=== PATIENT | male | born 1940 | race Caucasian/White ===

== ENCOUNTER → 2020-12-02 00:18 | Outpatient (CLI) | payer OTHER, SELFPAY ==
[2020-12-02 21:18] LABS: SARS-CoV-2 RNA PCR Negative
== END ==
PROVIDERS: PCP Internal Medicine; Visit Provider Internal Medicine Gastroenterology
DX: Z01.812 Encounter for preprocedural laboratory examination (principal); Z20.822 Contact with and (suspected) exposure to COVID-19
CPT/HCPCS: C9803; U0003; U0005

== ENCOUNTER 2020-12-05 00:27 | Day surgery (SDC) | payer OTHER, SELFPAY ==
[2020-11-24 14:20] VITALS: BMI 36.8
[2020-12-05 10:42] VITALS: BP 154/71; PULSE 88; RESP 20; TEMP 36.2; O2SAT 94
[2020-12-05] MEDS: LACTATED RINGERS 1,000 ML 150 ML IV CONT (10:53)
--- NOTE | 2020-12-05 11:48 | WPDANESEPP ---
Anes - Eval Pre Procedure Procedure: Operation Date: 12/05/20 12:00 Proposed Procedures p Screening Colonoscopy - Eris Bird MD Date/Time: 12/05/20 11:48 Surgeon: nyla Preop Diagnosis: colonoscopy Pre Op Diagnosis: Neoplasm Screening Patient Data Age: 79 Gender: M Height: 1.83 m Weight: 125.2 kg Last Vital Signs Temp 36.2 C L 12/05/20 10:42 Pulse 88 12/05/20 10:42 Resp 20 12/05/20 10:42 BP 154/71 H 12/05/20 10:42 Pulse Ox 94 12/05/20 10:42 Allergies Allergy/AdvReac Type Severity Reaction Status Date / Time No Known Allergies Allergy Unknown Verified 12/05/20 10:41 Home Medications Medication Instructions Recorded Confirmed Type aspirin 81 mg tablet,delayed 81 mg PO DAILY 09/19/19 12/05/20 History release cholecalciferol (vitamin D3) 25 1,000 unit PO DAILY 09/19/19 12/05/20 History mcg (1,000 unit) capsule loratadine 10 mg tablet 10 mg PO DAILY 09/19/19 12/05/20 History multivitamin 1 tablet PO DAILY 09/19/19 12/05/20 History fluticasone furoate 100 1 inhalation INHALATION Q24H 90 03/28/20 12/05/20 Rx mcg-vilanterol 25 mcg/dose Days #180 each inhalation powder montelukast 10 mg tablet 10 mg PO DAILY 90 Days #90 tablet 03/28/20 12/05/20 Rx albuterol sulfate 90 mcg/actuation 1 inhalation INHALATION Q4H PRN 05/09/20 12/05/20 Rx aerosol inhaler #18 gm losartan 100 mg tablet See Rx Instructions .ROUTE 07/29/20 12/05/20 Rx .COMPLEX #90 tablet metoprolol succinate 50 mg See Rx Instructions .ROUTE 07/29/20 12/05/20 Rx tablet,extended release 24 hr .COMPLEX #90 tablet potassium chloride 20 mEq See Rx Instructions .ROUTE 07/29/20 12/05/20 Rx tablet,extended release(part/cryst) .COMPLEX #90 tablet furosemide 40 mg tablet See Rx Instructions .ROUTE 10/15/20 12/05/20 Rx .COMPLEX #180 tablet sodium,potassium,mag sulfates 17.5 See Rx Instructions PO .COMPLEX 11/24/20 12/05/20 Rx gram-3.13 gram-1.6 gram oral soln #354 ml Patient hx anesthesia problems: none Family hx anesthesia problems: none PMFSH Past Medical History Medical History Allergic rhinitis, unspecified (10/02/15) Bleeding nose Chronic diastolic (congestive) heart failure COPD with exacerbation Essential (primary) hypertension History of tobacco use quit 1984 Hypersomnia Mild intermittent asthma without complication Postnasal drip Rhinitis Simple chronic bronchitis Family History Family History Father Acute myocardial infarction, Onset Age: 59 Mother Family history of chronic obstructive pulmonary disease Social History Social History Smoking packs per day: 1 Smoking cigarettes per day: 20.0 Years smoked: 20 Smoking pack-years: 20.00 Smoking status: Former smoker Tobacco type: cigarettes Alcohol intake: current Alcohol use details: rarely Living arrangements: alone Gender identity (if verbalized by the patient): Male Spiritual care concerns: No Exam Day of Procedure 12/05/20 11:48 Patient weight: morbidly obese Heart: regular rate and rhythm Lungs: normal air movement Airway: Mallampati scale class III Neurological: alert and oriented
--- NOTE | 2020-12-05 11:51 | P.PNAN_ITS ---
Anes - Eval Final PreProcedure Day of Procedure 12/05/20 11:51 Patient weight: obese Heart: regular rate and rhythm Lungs: clear to auscultation Airway: Mallampati scale class II Neurological: alert and oriented Last oral intake: >/= 8 hours ASA classification: III Emergent: no Anesthetic plan: proceed Anesthesia type and monitoring: general GIVS and standard monitoring Informed Consent: The patient's anesthetic plan and its attendant risks and b enefits were discussed with the patient/family/POA. Questions were solicited and answers provided to the satisfaction of the patient/family/POA.
--- NOTE | 2020-12-05 11:51 | PM.HPGS ---
History of Present Illness History of Present Illness Consent: Risks, benefits, and alternatives have been discussed and questions answered. Patient agrees to proceed with procedure. Chief complaint: Neoplasm Screening Narrative: Michael Wang is a 79 year old male with colon polyps, last colonoscopy about 5 years ago. Review of Systems Constitutional: Constitutional: Denies headache(s) and Denies weakness Eyes: Eyes: Denies blurry vision ENT: Reports Normal hearing present, Denies headache(s) and Denies neck pain Cardiovascular: Cardiovascular: Denies chest pain and Denies dyspnea Respiratory: Respiratory: Denies dyspnea Gastrointestinal: Gastrointestinal: Reports no additional gastrointestinal complaints Genitourinary: Genitourinary: Denies dysuria Musculoskeletal: Musculoskeletal: Denies neck pain Integumentary/Breasts: Skin/Breast: Denies dry skin Neurologic: Reports Normal hearing present, Denies headache(s) and Denies weakness Psychiatric: Psychiatric: Denies anxiety Endocrine: Endocrine: Denies change in body appearance Hematologic/Lymphatic: Hematologic/Lymphatic: Denies easy bleeding Allergic/Immunologic: Allergic/Immunologic: Denies urticaria PMFSH Past Medical History Medical History Allergic rhinitis, unspecified (10/02/15) Bleeding nose Chronic diastolic (congestive) heart failure COPD with exacerbation Essential (primary) hypertension History of tobacco use quit 1984 Hypersomnia Mild intermittent asthma without complication Postnasal drip Rhinitis Simple chronic bronchitis Family History Family History Father Acute myocardial infarction, Onset Age: 59 Mother Family history of chronic obstructive pulmonary disease Social History Social History Smoking packs per day: 1 Smoking cigarettes per day: 20.0 Years smoked: 20 Smoking pack-years: 20.00 Smoking status: Former smoker Tobacco type: cigarettes Alcohol intake: current Alcohol use details: rarely Living arrangements: alone Gender identity (if verbalized by the patient): Male Spiritual care concerns: No Meds Home Medications and Allergies Home Medications Medication Instructions Recorded Confirmed Type aspirin 81 mg tablet,delayed 81 mg PO DAILY 09/19/19 12/05/20 History release cholecalciferol (vitamin D3) 25 1,000 unit PO DAILY 09/19/19 12/05/20 History mcg (1,000 unit) capsule loratadine 10 mg tablet 10 mg PO DAILY 09/19/19 12/05/20 History multivitamin 1 tablet PO DAILY 09/19/19 12/05/20 History fluticasone furoate 100 1 inhalation INHALATION Q24H 90 03/28/20 12/05/20 Rx mcg-vilanterol 25 mcg/dose Days #180 each inhalation powder montelukast 10 mg tablet 10 mg PO DAILY 90 Days #90 tablet 03/28/20 12/05/20 Rx albuterol sulfate 90 mcg/actuation 1 inhalation INHALATION Q4H PRN 05/09/20 12/05/20 Rx aerosol inhaler #18 gm losartan 100 mg tablet See Rx Instructions .ROUTE 07/29/20 12/05/20 Rx .COMPLEX #90 tablet metoprolol succinate 50 mg See Rx Instructions .ROUTE 07/29/20 12/05/20 Rx tablet,extended release 24 hr .COMPLEX #90 tablet potassium chloride 20 mEq See Rx Instructions .ROUTE 07/29/20 12/05/20 Rx tablet,extended release(part/cryst) .COMPLEX #90 tablet furosemide 40 mg tablet See Rx Instructions .ROUTE 10/15/20 12/05/20 Rx .COMPLEX #180 tablet sodium,potassium,mag sulfates 17.5 See Rx Instructions PO .COMPLEX 11/24/20 12/05/20 Rx gram-3.13 gram-1.6 gram oral soln #354 ml Allergies Allergy/AdvReac Type Severity Reaction Status Date / Time No Known Allergies Allergy Unknown Verified 12/05/20 10:41 Vital Signs Vital Signs - 24 hr 12/05/20 10:42 Temperature 97.1 F L Pulse Rate 88 Respiratory Rate 20 Blood Pressure 154/71 H Pulse Oximetry 94 Exam Const: G
[2020-12-05 12:14] VITALS: BP 122/64; PULSE 76; RESP 27; O2SAT 100
[2020-12-05 12:24] VITALS: BP 125/71; PULSE 72; RESP 26; O2SAT 94
[2020-12-05 12:34] VITALS: BP 128/75; PULSE 70; RESP 27; O2SAT 94
== END 2020-12-05 12:41 | disposition home or self-care (01) ==
PROVIDERS: PCP Internal Medicine; Visit Provider Internal Medicine Gastroenterology
PROC: 0DJD8ZZ Inspection of Lower Intestinal Tract, Via Natural or Artificial Opening Endoscopic (ICD-10-PCS; CPT 45378; principal; 2020-12-05 12:00)
DX: Z12.11 Encounter for screening for malignant neoplasm of colon (principal); Z86.010 Personal history of colon polyps; K64.8 Other hemorrhoids; I11.0 Hypertensive heart disease with heart failure; I50.32 Chronic diastolic (congestive) heart failure; J44.9 Chronic obstructive pulmonary disease, unspecified; J45.20 Mild intermittent asthma, uncomplicated; R09.82 Postnasal drip; Z87.891 Personal history of nicotine dependence
CPT/HCPCS: G0105; C9803; J2704; J7120; U0003; U0005

== ENCOUNTER 2021-03-05 13:21 | Outpatient (CLI) | payer OTHER, SELFPAY ==
--- NOTE | ~2021-03-05 | MM_ITS ---
EXAMINATION: MM diagnostic mammo BI HISTORY: Breast pain TECHNIQUE: Additional 3-D tomosynthesis images of the breasts were performed and synthetic 2-D images were generated. CAD analysis was submitted and interpreted. COMPARISON: None BREAST PARENCHYMAL COMPOSITION: Breast composed of scattered areas of fibroglandular density. FINDINGS: There is bilateral symmetric gynecomastia. There are bilateral intramammary lymph nodes in the upper outer quadrants. There is a lymph node involving the soft tissues inferior to the right arben ast. No suspicious masses to suggest malignancy. IMPRESSION: 1. No evidence for malignancy in either breast. Bilateral symmetric gynecomastia. 2. Recommend follow-up clinical management for gynecomastia. BI-RADS Category 2: Benign finding(s). Reviewed, dictated and finalized at location A. IMPRESSION: 1. No evidence for malignancy in either breast. Bilateral symmetric gynecomasti a. 2. Recommend follow-up clinical management for gynecomastia. BI-RADS Category 2: Benign finding(s).
== END 2021-03-05 13:22 | disposition home or self-care (01) ==
LOC: ANHIMG 13:24
PROVIDERS: PCP Internal Medicine; Visit Provider Internal Medicine
DX: N62 Hypertrophy of breast (principal)
CPT/HCPCS: 77066

== ENCOUNTER → 2021-06-25 10:14 | Outpatient (REF) | payer OTHER, SELFPAY | LOC: ANHLAB 10:14 | PROVIDERS: PCP Internal Medicine; Visit Provider Nurse Practitioner | DX: L98.429 Non-pressure chronic ulcer of back with unspecified severity (principal); L98.8 Other specified disorders of the skin and subcutaneous tissue | CPT/HCPCS: 88305; 88341; 88342 ==

== ENCOUNTER 2021-07-20 02:22 | Day surgery (SDC) | payer OTHER, SELFPAY ==
[2021-07-17 15:15] VITALS: BMI 38.6
--- NOTE | ~2021-07-20 | BM_ITS ---
EXAMINATION: CCL bone marrow asp w bx diag DATE: 07/20/2021 09:45 INDICATION: Myeloid carcinoma. TECHNIQUE: A time-out was performed to verify the patient's name, date of , and procedure to b e performed. The procedure including the risks, benefits, and alternatives was discussed with the pat ient. Risks discussed included bleeding and infection. The patient understood the risks and agreed to proceed. The skin overlying the left ilium was prepped and draped in usual sterile fashion. Anesth etic was administered with 1% lidocaine subcutaneously. An 11 gauge needle was inserted into the iliu m with fluoroscopic guidance. Bone marrow was aspirated. An 8 gauge needle was then inserted into the ilium with fluoroscopic guidance. A core bone marrow biopsy was obtained. There were no immediate co mplications. Fluoroscopy exposure time was 0.0 minutes. The total number of images was 14. FINDINGS: Real-time fluoroscopy demonstrates a marker overlying the right posterior superior iliac sp ine. IMPRESSION: 1. Fluoro-guided bone marrow aspiration. 2. Fluoro-guided bone marrow core biopsy. Reviewed, dictated and finalized at location A.
[2021-07-20 07:47] VITALS: BP 181/76; PULSE 90; RESP 22; TEMP 36.4; O2SAT 94; BMI 38.8
[2021-07-20 07:56] LABS: Basophils Percent Auto 0.7 % (0.2-1.2); Eosinophils Absolute Auto 0.2 K/mm3 (0-0.3); Eosinophils Percent Auto 2.8 % (0-4.4); Hematocrit 44.1 % (42.0-52.0); Hemoglobin 14.2 g/dL (14.0-18.0); Immature Granulocyte Absolute 0.03 K/mm3 (0.00-0.031); Immature Granulocyte Percent A 0.5 % (0-0.5); Lymphocytes Absolute Auto 1.23 K/mm3 (0.9-3.2); Lymphocytes Percent Auto 21.3 % (18.3-44.2); Mean Corpuscular HGB Conc 32.2 g/dl (32-36); Mean Corpuscular Hemoglobin 31.1 pg (26-34); Mean Corpuscular Volume 96.7 fl (80-100); Mean Platelet Volume 9.9 fl (7.4-10.4); Monocytes Absolute Auto 0.9 K/mm3 (0.1-0.6); Monocytes Percent Auto 15.9 % (2.6-8.5); Neutrophils Absolute Auto 3.4 K/mm3 (1.3-6.7); Neutrophils Percent Auto 58.8 % (45.5-73.1); Platelet Count Result 329 k/mm3 (150-375); Red Blood Count 4.56 M/mm3 (4.6-6.20); Red Cell Distribution Width 14.6 % (11.5-14.5); White Blood Count 5.8 K/mm3 (4.5-10.0)
[2021-07-20 08:06] LABS: INR 1.1; Prothrombin Time 14.1 Seconds (11.1-14.7)
[2021-07-20 09:46] VITALS: BP 148/72; PULSE 81; RESP 17; TEMP 35.8; O2SAT 91
[2021-07-20 10:00] VITALS: BP 146/73; PULSE 79; RESP 18; O2SAT 90
[2021-07-20 10:19] VITALS: BP 146/76; PULSE 80; RESP 16
--- NOTE | 2021-07-20 10:38 | SUR.PHASEII ---
iv d/c tip intact. d/c education given to pt at bedside. patient able to ambulate w/o difficulty. pt r/o soreness to r.hip. dressing d/c/i at d/c/ patient transfered via w/c to 's car. d/c instructions given to her.
== END 2021-07-20 10:38 | disposition home or self-care (01) ==
PROVIDERS: Radiology Diagnostic Radiology; PCP Internal Medicine; Visit Provider Internal Medicine Hematology & Oncology
DX: C92.30 Myeloid sarcoma, not having achieved remission (principal); I11.0 Hypertensive heart disease with heart failure; I50.9 Heart failure, unspecified; J44.9 Chronic obstructive pulmonary disease, unspecified; Z87.891 Personal history of nicotine dependence; Z79.82 Long term (current) use of aspirin; Z85.46 Personal history of malignant neoplasm of prostate; Z92.3 Personal history of irradiation
CPT/HCPCS: 36415; 38222; 85025; 85610; 88184; 88185; 88305; 88311; 88313; 88341; 88342; 88360; J1642; J3010

== ENCOUNTER 2021-07-30 09:20 | Outpatient (CLI) | payer OTHER, SELFPAY ==
--- NOTE | ~2021-07-30 | PE_ITS ---
EXAMINATION: PET skull to mid thigh DATE: 07/30/2021 11:04 INDICATION: Myeloid sarcoma TECHNIQUE: Blood glucose level was 110 mg/dL. 10.254 mCi of 18-fluorodeoxyglucose (18-FDG) was admini stered i.v. Low dose computed tomography (CT) images were acquired from the base of the brain to the proximal thighs for attenuation correction and anatomic localization. Positron emission tomography (P ET) images were acquired in the same distribution beginning 59 minutes after injection. Images includ ing fused PET/CT images were reconstructed in axial, coronal, and sagittal planes. Automated exposure control technique was employed. The dose-length product was 1409.35mGy-cm. COMPARISON: None FINDINGS: Head/neck: There is symmetric increased activity in the oral cavity, palatine tonsils, parotid glands, submandi bular glands, laryngeal muscles and ocular muscles without CT correlate, likely physiologic. No patho logically enlarged cervical lymphadenopathy or suspicious foci of increased FDG uptake in the visuali zed head or neck. Chest: No suspicious pulmonary nodules, pneumonia, pulmonary edema or other pulmonary infiltrates. No pleura l effusion. Arch size is normal. Atherosclerotic coronary artery calcific location. No pericardial ef fusion. Thoracic aorta is normal in caliber. No pathologically enlarged thoracic or FDG avid lymphade nopathy. Abdomen/pelvis/proximal thighs: Physiologic renal accumulation and excretion of FDG activity in the kidneys, bladder and along portio ns of ureters. 4 cm hypodense photopenic cyst at the lower pole of the left kidney. Normal degree and heterogenous pattern of increased uptake throughout the liver without radiologic correlate or domina nt FDG avid lesion. The gallbladder, pancreas, spleen and bilateral adrenal glands are normal. Mild u ptake scattered throughout the bowels without radiologic correlate, also likely physiologic. Metallic densities at the prostate which could represent surgical clips or brachytherapy seeds. No other abno rmal foci of increased FDG uptake or pathologically enlarged lymphadenopathy in the abdomen, pelvis o r proximal thighs. Musculoskeletal: Minimal relatively diffuse FDG uptake throughout the bones. No suspicious lytic, blastic or dominant FDG avid bone lesions. IMPRESSION: 1. No suspicious FDG avid lesions in the head, neck, chest, abdomen or pelvis including in the bones. Reviewed, dictated and finalized at location A. IMPRESSION: 1. No suspicious FDG avid lesions in the head, neck, chest, abdomen or pelvis i ncluding in the bones.
[2021-07-30 09:35] LABS: Glucose Point of Care 110 mg/dl (65-105)
== END 2021-07-30 09:21 | disposition home or self-care (01) ==
LOC: ANHIMG 09:23
PROVIDERS: PCP Internal Medicine; Visit Provider Internal Medicine Hematology & Oncology
DX: C92.30 Myeloid sarcoma, not having achieved remission (principal)
CPT/HCPCS: 78815; A9552

== ENCOUNTER 2021-07-31 10:19 | Outpatient (CLI) | payer OTHER, SELFPAY ==
[2021-07-31 11:04] LABS: Partial Thromboplastin Time 30.6 SECONDS (22.3-36.8)
[2021-07-31 12:07] LABS: Anion Gap 10 mmol/L (8-16); Blood Urea Nitrogen 17 mg/dL (9-20); Calcium 9.3 mg/dL (8.4-10.2); Carbon Dioxide 32 mmol/L (22-30); Chloride 100 mmol/L (98-107); Estimated Glomerular Filt Rate > 60; Glucose 126 mg/dL (65-110); Potassium 3.6 mmol/L (3.4-5.0); Sodium 142 mmol/L (137-145)
== END 2021-07-31 10:20 | disposition home or self-care (01) ==
LOC: ANHSURGERY 10:21
PROVIDERS: Anesthesiology; PCP Internal Medicine; Visit Provider Surgery
DX: Z01.818 Encounter for other preprocedural examination (principal); C92.30 Myeloid sarcoma, not having achieved remission; I10 Essential (primary) hypertension
CPT/HCPCS: 36415; 80048; 85730

== ENCOUNTER 2021-08-05 03:22 | Day surgery (SDC) | payer OTHER, SELFPAY ==
[2021-07-30 15:26] VITALS: BMI 38.6
--- NOTE | ~2021-08-05 | XR_ITS ---
XR chest port-a-cath/central 08/05/2021 14:20 Indication: Status post port placement Procedure: AP portable chest Comparison: 07/04/2029 Findings: Port catheter tip in the SVC. Borderline heart size. No focal air space disease, pulmonary edema, pleural effusion or suspected pneumothorax. The lungs are hyperinflated which is consistent wi th, but not diagnostic of chronic obstructive pulmonary disease. Impression: 1: No acute cardiopulmonary disease. Reviewed, dictated and finalized at location B. Impression: 1: No acute cardiopulmonary disease.
--- NOTE | ~2021-08-05 | XR_ITS ---
EXAMINATION: XR fl guide central line place DATE: 08/05/2021 14:05 INDICATION: Central venous port catheter placement TECHNIQUE: A single fluoroscopic spot image of the central chest was obtained during procedure perfor med by Dr. Smith. Radiologist was not present for the imaging or procedure. The amount of fluoroscopy time used during this procedure was 2.3 minutes. Total DAP was 1.01 mGycm^2 FINDINGS: Central venous catheter extends caudally along the left brachiocephalic vein, crossing midline and ex tending further caudally with distal tip in the mid superior vena cava. See procedure note for furthe r detail. IMPRESSION: 1. Central venous catheter tip in the midsuperior vena cava. Reviewed, dictated and finalized at location A.
[2021-08-05 11:30] VITALS: BMI 38.5
[2021-08-05] MEDS: KETOROLAC 15 MG/ML VIAL (*BKC) IV PUSH (12:01)
[2021-08-05] MEDS: LACTATED RINGERS 1,000 ML 30 ML IV CONT (12:01)
[2021-08-05 12:08] VITALS: BP 134/70; PULSE 85; RESP 20; TEMP 36.8; O2SAT 92
--- NOTE | 2021-08-05 12:15 | PM.IMHP ---
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 Pt is going to undergo chemoradiation. Pt here for VAD placement. Pt denies previous central venous catheterization. Pt is right handed. Chief Complaint: myeloid sarcoma Review of Systems Review of Systems: All systems reviewed & are unremarkable except as noted in HPI and below PMFSH Past Medical History Medical History Allergic rhinitis, unspecified (10/02/15) BCC (basal cell carcinoma of skin) Bleeding nose Chronic diastolic (congestive) heart failure COPD with exacerbation Essential (primary) hypertension History of tobacco use quit 1984 Hypersomnia Mild intermittent asthma without complication Postnasal drip Rhinitis Simple chronic bronchitis Family History Family History Father Acute myocardial infarction, Onset Age: 59 Mother Family history of chronic obstructive pulmonary disease Social History Social History Smoking packs per day: 1 Smoking cigarettes per day: 20.0 Years smoked: 20 Smoking pack-years: 20.00 Smoking status: Former smoker Tobacco type: cigarettes Second hand tobacco smoke exposure: Yes Smoking end date: 02/19/80 Alcohol intake: current Alcohol use details: rarely Living arrangements: with family Gender identity (if verbalized by the patient): Male Spiritual care concerns: No Meds Home Medications and Allergies Home Medications Medication Instructions Recorded Confirmed Type aspirin 81 mg tablet,delayed 81 mg PO DAILY 09/19/19 08/05/21 History release cholecalciferol (vitamin D3) 25 1,000 unit PO DAILY 09/19/19 08/05/21 History mcg (1,000 unit) capsule multivitamin 1 tablet PO DAILY 09/19/19 08/05/21 History black cohosh 20 mg tablet 20 mg PO DAILY 05/19/21 08/05/21 History evening primrose oil 500 mg capsule 500 mg PO DAILY cap 05/19/21 08/05/21 History furosemide 40 mg tablet 40 mg PO TID 90 Days #270 tablet 05/20/21 08/05/21 Rx albuterol sulfate 90 mcg/actuation 1 inh INHALATION Q4H PRN #18 gm 06/11/21 08/05/21 Rx aerosol inhaler fluticasone furoate-vilanterol 1 inh INHALATION DAILY 07/17/21 08/05/21 History [Breo Ellipta] potassium chloride [Klor-Con M20] 20 meq PO DAILY 07/17/21 08/05/21 History losartan 100 mg tablet 100 mg PO DAILY #90 tablet 07/22/21 08/05/21 Rx metoprolol succinate 50 mg 50 mg PO DAILY #90 tablet 07/22/21 08/05/21 Rx tablet,extended release 24 hr vitamin E 800 unit PO DAILY 07/30/21 08/05/21 History Allergies Allergy/AdvReac Type Severity Reaction Status Date / Time No Known Allergies Allergy Verified 08/05/21 11:22 Vital Signs Vital Signs - 24 hr 08/05/21 12:08 Temperature 36.8 C Pulse Rate 85 Respiratory Rate 20 Blood Pressure 134/70 Pulse Oximetry 92 Exam Const: General: cooperative, comfortable and no acute distress Nutritional Appearance: obese Orientation/consciousness: patient oriented x3 Limitations: no limitations Chest: Chest palpation & inspection: normal inspection of the chest Resp: Effort & Inspection: normal respiratory effort Auscultation: clear to auscultation bilaterally Cardio: Rate: regular rate Rhythm: regular rhythm GI: Inspection: normal to inspection GI Palp: Yes Soft to palpation and No Tenderness to palpation present (GI) Assessment and Plan Assessment and plan (1) 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
--- NOTE | 2021-08-05 12:18 | WPDHPUPDATE1 ---
History and Physical Update Update Date/Time: 08/05/21 12:18 History and Physical has been reviewed, including an updated exam of the patient. There are NO changes in the patient's condition. Risks, benefits, and alternatives have been discussed and questions answered. Patient agrees to proceed with procedure.
--- NOTE | 2021-08-05 12:19 | WPDANESEPPF ---
Anes - Initial Pre Proc Eval Procedure: Operation Date: 08/05/21 13:00 Proposed Procedures p Port Placement - Kalli Smith MD Date/Time: 08/05/21 12:19 Surgeon: Kalli Smith MD Pre Op Diagnosis: Myeloid Sarcoma Patient Data Age: 80 Gender: M Height: 1.83 m Weight: 128.7 kg Last Vital Signs Temp 36.8 C 08/05/21 12:08 Pulse 85 08/05/21 12:08 Resp 20 08/05/21 12:08 BP 134/70 08/05/21 12:08 Pulse Ox 92 08/05/21 12:08 Allergies Allergy/AdvReac Type Severity Reaction Status Date / Time No Known Allergies Allergy Verified 08/05/21 11:22 Home Medications Medication Instructions Recorded Confirmed Type aspirin 81 mg tablet,delayed 81 mg PO DAILY 09/19/19 08/05/21 History release cholecalciferol (vitamin D3) 25 1,000 unit PO DAILY 09/19/19 08/05/21 History mcg (1,000 unit) capsule multivitamin 1 tablet PO DAILY 09/19/19 08/05/21 History black cohosh 20 mg tablet 20 mg PO DAILY 05/19/21 08/05/21 History evening primrose oil 500 mg capsule 500 mg PO DAILY cap 05/19/21 08/05/21 History furosemide 40 mg tablet 40 mg PO TID 90 Days #270 tablet 05/20/21 08/05/21 Rx albuterol sulfate 90 mcg/actuation 1 inh INHALATION Q4H PRN #18 gm 06/11/21 08/05/21 Rx aerosol inhaler fluticasone furoate-vilanterol 1 inh INHALATION DAILY 07/17/21 08/05/21 History [Breo Ellipta] potassium chloride [Klor-Con M20] 20 meq PO DAILY 07/17/21 08/05/21 History losartan 100 mg tablet 100 mg PO DAILY #90 tablet 07/22/21 08/05/21 Rx metoprolol succinate 50 mg 50 mg PO DAILY #90 tablet 07/22/21 08/05/21 Rx tablet,extended release 24 hr vitamin E 800 unit PO DAILY 07/30/21 08/05/21 History Patient hx anesthesia problems: none Family hx anesthesia problems: none Results Review: All pre-operative results and documents have been reviewed as part of the pre-operative evaluation. REPLACED BY [facility] Past Medical History Medical History Allergic rhinitis, unspecified (10/02/15) BCC (basal cell carcinoma of skin) Bleeding nose Chronic diastolic (congestive) heart failure COPD with exacerbation Essential (primary) hypertension History of tobacco use quit 1984 Hypersomnia Mild intermittent asthma without complication Postnasal drip Rhinitis Simple chronic bronchitis Family History Family History Father Acute myocardial infarction, Onset Age: 59 Mother Family history of chronic obstructive pulmonary disease Social History Social History Smoking packs per day: 1 Smoking cigarettes per day: 20.0 Years smoked: 20 Smoking pack-years: 20.00 Smoking status: Former smoker Tobacco type: cigarettes Second hand tobacco smoke exposure: Yes Smoking end date: 02/19/80 Alcohol intake: current Alcohol use details: rarely Living arrangements: with family Gender identity (if verbalized by the patient): Male Spiritual care concerns: No Anes - Eval Final PreProcedure Day of Procedure 08/05/21 12:19 Patient weight: obese Heart: regular rate and rhythm Lungs: clear to auscultation Airway: Mallampati scale class II Neurological: alert and oriented Last oral intake: >/= 8 hours ASA classification: IV Emergent: no Anesthetic plan: proceed Anesthesia type and monitoring: general GIVS and standard monitoring Results Review: All pre-operative results and documents have been reviewed as part of the pre-operative evaluation. Informed Consent: The patient's anesthetic plan and its attendant risks and benefits were discussed with the patient/family/POA. Questions were solicited and answers provided to the satisfaction of the patient/family/POA.
[2021-08-05] MEDS: LIDO 1%/EPINEPHRINE 1:100,000 50 ML VIAL 10 ML INFILTRATE (13:01)
[2021-08-05] MEDS: ceFAZolin 3 GM/D5W 100 ML 100 ML IVPB (13:01)
[2021-08-05] MEDS: HEPARIN SODIUM 5,000 UNITS/ML VIAL 5000 UNITS IRRIGATION (13:01)
--- NOTE | 2021-08-05 13:23 | SUR.PREOP ---
1230; DR BELLAMY NOTIFIED OF PT'S SAO2 OF 92% ON ROOM AIR IN PREOP VS
[2021-08-05 14:08] VITALS: BP 144/66; PULSE 88; RESP 12; O2SAT 92
--- NOTE | 2021-08-05 14:13 | W.PM.PROC2 ---
Procedure Note - Detailed Date of Procedure 08/05/21 Pre-op Diagnosis Myeloid Sarcoma Post-op Diagnosis same Procedure Performed Placement of left internal jugular venous access device under both ultrasound and fluoroscopic guidance Surgeon Kalli Smith MD Anesthesia MAC and local Indications 80-year-old male with multiple medical issues presenting for placement of VAD. Patient recently diagnosed with myeloid sarcoma and is going to undergo radiation and chemotherapy. Findings Able to cannulate left subclavian vein however difficulty passing guidewire given acute angulation Description of Procedure Patient was brought into the operating room and placed in the supine position. After adequate induction of mac anesthesia, the patient was prepped and draped in normal sterile fashion. Time-out was then done to verify the patient's identity, as well as the procedure being performed. I began by making a small incision in the left chest, I then gained access into the left subclavian vein with an 18 gauge needle. I then attempted to place the guidewire into the vein, however, I could not get the wire to pass over 15 cm. I did attempt to cannulize the subclavian vein a few other times without success. I then used the ultrasound to gain access into the left internal jugular vein. Once access was gained, I placed the guidewire in the vein and confirmed proper positioning. I then locally anesthetized the area in the left chest. I then enlarged the incision including making a subcutaneous pocket inferiorly to allow placement of the port itself. I proceeded to tunnel the catheter from the chest to the left neck insertion site. I then placed a dilating sheath over the guidewire into the left internal jugular vein via sterile Seldinger technique. This was once again done and confirmed via fluoroscopic guidance. I then removed the dilator and the guidewire, now just leaving the sheath in the vein. I then fed the previously flushed catheter into the left internal jugular vein under fluoroscopic guidance. At approximately 32 cm, the catheter was noted to be near the atrial caval junction. I then peeled away the sheath, now just leaving the catheter in the vein. I then was able to easily draw and flush from the catheter. The catheter was cut to fit and attached to the port itself. The port was placed into the previously made subcutaneous pocket and sutured in with 0 Ethibond suture. Final fluoroscopic view showed the termination of the catheter at the atrial caval junction with a nice smooth curvature back to the port itself. I was able to gain access to the port with a Puentes needle and was able to easily draw and flush from the port. I then flushed 4 cc of a final heparin flush into the port. The incision was closed with 3 0 Vicryl suture in the subcutaneous tissue and the skin was closed with 4 O Monocryl subcuticular suture. Dermabond was then placed on wound. The patient tolerated the procedure well and will be sent to the recovery room in stable condition. Implants [facility]J VAD Estimated Blood Loss 25 Drains No Packing No Pathology none sent Complications No immediate complications Condition stable Disposition PACU
[2021-08-05 14:35] VITALS: BP 132/63; PULSE 87
[2021-08-05 15:05] VITALS: BP 133/63; PULSE 88
--- NOTE | 2021-08-05 15:49 | SUR.PHASEII ---
RN called Dr. Smith and he said it was ok to resume aspirin tomorrow.
== END 2021-08-05 15:10 | disposition home or self-care (01) ==
PROVIDERS: PCP Internal Medicine; Visit Provider Surgery
PROC: (CPT 36561; principal; 2021-08-05 13:00)
DX: C92.30 Myeloid sarcoma, not having achieved remission (principal); I11.0 Hypertensive heart disease with heart failure; I50.32 Chronic diastolic (congestive) heart failure; J44.9 Chronic obstructive pulmonary disease, unspecified; J45.20 Mild intermittent asthma, uncomplicated; Z87.891 Personal history of nicotine dependence; E66.9 Obesity, unspecified; Z68.38 Body mass index [BMI] 38.0-38.9, adult; Z79.82 Long term (current) use of aspirin; Z79.51 Long term (current) use of inhaled steroids
CPT/HCPCS: 36561; 36415; 77001; 80048; 85730; C1788; J0690; J1100; J1644; J1885; J2405; J2704; J3010; J7030; J7120

== ENCOUNTER 2021-11-10 12:17 | Outpatient (CLI) | payer OTHER, SELFPAY ==
[2021-11-10 13:38] LABS: Cholesterol 137 mg/dL (0-200); HDL Direct 27 mg/dL; Triglycerides 153 mg/dL (<150)
[2021-11-10 13:49] LABS: LDL Cholesterol Direct 78 mg/dL
[2021-11-10 16:58] LABS: Creatinine Urine 55.5 mg/dL
[2021-11-10 17:04] LABS: MALB Creatinine Ratio 13.9 mg/g (0-30); Microalbumin Urine Random 7.7 mg/L (0-16.7)
[2021-11-10 17:49] LABS: Vitamin D 25 Hydroxy 37.9 ng/mL
== END 2021-11-10 12:18 | disposition home or self-care (01) ==
LOC: ANHLAB 12:19
PROVIDERS: PCP Internal Medicine; Visit Provider Internal Medicine Hematology & Oncology
DX: E55.9 Vitamin D deficiency, unspecified (principal); E78.2 Mixed hyperlipidemia; I10 Essential (primary) hypertension; I50.32 Chronic diastolic (congestive) heart failure; J44.9 Chronic obstructive pulmonary disease, unspecified; R73.01 Impaired fasting glucose
CPT/HCPCS: 36415; 80061; 82043; 82306; 83036; 84443

== ENCOUNTER → 2021-11-24 13:20 | Outpatient (REF) | payer OTHER, SELFPAY | LOC: ANHLAB 13:20 | PROVIDERS: PCP Internal Medicine; Visit Provider Nurse Practitioner | DX: C44.519 Basal cell carcinoma of skin of other part of trunk (principal) | CPT/HCPCS: 88305 ==

== ENCOUNTER 2022-11-18 15:53 | Observation (INO) | payer OTHER, SELFPAY ==
--- NOTE | ~2022-11-18 | XR_ITS ---
EXAMINATION: XR chest 2V DATE: 11/18/2022 16:54 INDICATION: Chest pain and shortness of breath. TECHNIQUE: Frontal and lateral views of the chest were obtained. COMPARISON: Chest single view 08/05/2021, PET CT 07/30/2021 FINDINGS: There is no pneumonia, pleural effusion, or pneumothorax. The heart size is normal. There i s a prominent left pericardial fat pad. There is a left internal jugular port with tip in superior ve na cava. IMPRESSION: 1. No acute cardiopulmonary disease. Reviewed, dictated and finalized at location A. WELDER
--- NOTE | 2022-11-18 15:54 | ECG_ITS ---
Measurements Intervals [place] Rate: 84 P: 42 LA: 209 QRS: -19 QRSD: 114 T: 47 QT: 378 QTc: 448 Interpretive Statements SINUS RHYTHM LOW QRS VOLTAGE IN PRECORDIAL LEADS [QRS DEFLECTION < 1.0 mV IN CHEST LEADS] BORDERLINE ECG NO PREVIOUS ECG AVAILABLE FOR COMPARISON Electronically Signed On 11-19-2022 14:37:00 WOOD GRAINER by Larry Felix M.D.
[2022-11-18 16:07] VITALS: BP 148/63; PULSE 87; RESP 18; TEMP 36.6; O2SAT 97
[2022-11-18 16:11] LABS: Hematocrit 42.3 % (42.0-52.0); Hemoglobin 13.5 g/dL (14.0-18.0); Mean Corpuscular HGB Conc 31.9 g/dl (32-36); Mean Corpuscular Hemoglobin 32.1 pg (26-34); Mean Corpuscular Volume 100.7 fl (80-100); Mean Platelet Volume 9.6 fl (7.4-10.4); Platelet Count Result 146 k/mm3 (150-375); Red Cell Distribution Width 14.7 % (11.5-14.5); White Blood Count 12.9 K/mm3 (4.5-10.0)
[2022-11-18 16:21] LABS: Prothrombin Time 12.8 Seconds (11.1-14.7)
[2022-11-18 16:22] LABS: Partial Thromboplastin Time 29.8 SECONDS (22.3-36.8)
[2022-11-18 16:27] LABS: Potassium 4.1 mmol/L (3.4-5.0)
[2022-11-18 16:29] LABS: Alanine Aminotransferase 35 U/L (6-50); Albumin Level 4.1 g/dL (3.5-5.1); Alkaline Phosphatase 154 U/L (38-126); Anion Gap 2 mmol/L (8-16); Aspartate Amino Transferase 43 U/L (17-59); Bilirubin,Total 0.4 mg/dL (0.2-1.3); Blood Urea Nitrogen 12 mg/dL (9-20); Calcium 8.7 mg/dL (8.4-10.2); Carbon Dioxide 35 mmol/L (22-30); Chloride 98 mmol/L (98-107); Estimated CRCL calculation 77 ml/min; Estimated Glomerular Filt Rate > 60; Glucose 104 mg/dL (65-110); Lipase 111 U/L (23-300); Sodium 135 mmol/L (137-145)
[2022-11-18 16:38] LABS: Troponin I < 0.012 ng/mL (0.000-0.034)
[2022-11-18 16:45] LABS: Band Neutrophils Percent 9 % (0-6); Eosinophils Absolute Manual 0.12 K/mm3 (0.02-0.5); Eosinophils Percent Manual 1 % (0-4); Lymphocytes Absolute Manual 1.93 K/mm3 (1.1-4.5); Monocytes Absolute Manual 2.58 K/mm3 (0.1-0.90); Monocytes Percent Manual 20 % (3-9); Neutrophils Absolute Manual 8.25 K/mm3 (1.3-6.7); Neutrophils Percent Manual 55 % (46-73); Schistocytes None Seen (NORMAL); Total Cells Counted 100
[2022-11-18 16:46] LABS: Anisocytosis 1+ (NORMAL)
[2022-11-18 19:46] LABS: Troponin I < 0.012 ng/mL (0.000-0.034)
[2022-11-18 20:20] VITALS: BP 155/61; PULSE 83; RESP 18; TEMP 36.8; O2SAT 96
[2022-11-18 22:40] LABS: Troponin I < 0.012 ng/mL (0.000-0.034)
[2022-11-18 23:55] LABS: Influenza A QL RT-PCR Negative (Negative); Influenza B QL RT-PCR Negative (Negative); RSV RNA, RT-PCR Negative (Negative); SARS-CoV-2 RNA PCR Negative
[2022-11-19] VITALS (8 sets, daily range): BP systolic 137–171; BP diastolic 65–78; PULSE 71–80; RESP 16–20; TEMP 36.1–36.6; O2SAT 93–96
--- NOTE | 2022-11-19 03:34 | ADMGEN ---
This patient, Michael Wang, was admitted to IMU Room 205-02. Patient/family oriented to hospital policies and general routines including ID bracelet, bed and alarms, visiting hours, pain management, procedures, bathroom and other care routines, personal items, smoking policy, room service/diet, and visiting hours. Information on how to activate the Rapid Response Team has been discussed. Patient/Family are encouraged to report perceived risks to care and to ask questions if they do not understand what they are told or what they should do.
--- NOTE | 2022-11-19 06:29 | ED.CHESTPAIN ---
HPI - Chest Pain General Chief Complaint: Chest Pain Stated Complaint: chest pain Time Seen by Provider: 11/18/22 21:55 History of Present Illness HPI narrative: Patient states that he had an episode of chest pain yesterday that seemed to resolve, but today it came back and was quite persistent. Denies any recent trauma, has never had chest pain in the past, no shortness of breath. 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 Related Data Home Medications Medication Instructions Recorded Confirmed aspirin 81 mg tablet,delayed 81 mg PO DAILY 09/19/19 11/19/22 release cholecalciferol (vitamin D3) 25 1,000 unit PO DAILY 09/19/19 11/19/22 mcg (1,000 unit) capsule (Vitamin D3) multivitamin 1 tablet PO DAILY 09/19/19 11/19/22 vitamin E 400 unit tablet 800 unit PO DAILY 07/30/21 11/19/22 Allergies Allergy/AdvReac Type Severity Reaction Status Date / Time No Known Allergies Allergy Verified 08/27/22 13:27 Review of Systems Review of Systems: CONST: No fever. HEENT: No sore throat C/V: chest pain RESP: No cough GI: No nausea vomit : No dysuria. M/S: No joint pain. SKIN: No rash. NEURO: [No headache or focal numbness or weakness] PSYCH: [No depression] ON LICENSE OF [facility] Past Medical History Medical History Allergic rhinitis, unspecified (10/02/15) BCC (basal cell carcinoma of skin) Bilateral mastodynia Bleeding nose Chronic diastolic (congestive) heart failure COPD with exacerbation Essential (primary) hypertension History of tobacco use quit 1984 Hypersomnia Mild intermittent asthma without complication Postnasal drip Rhinitis Simple chronic bronchitis Family History Family History Father Acute myocardial infarction, Onset Age: 59 Mother Family history of chronic obstructive pulmonary disease Social History Social History Smoking packs per day: 1 Smoking cigarettes per day: 20.0 Years smoked: 20 Smoking pack-years: 20.00 Smoking status: Former smoker Tobacco type: cigarettes Second hand tobacco smoke exposure: No Smoking end date: 02/19/80 Alcohol intake: current Alcohol use details: rarely Substance use: never Substance use type: does not use Lack of Transportation: No Lack of Food: Never True Current Housing: I Have Housing Concerned About Future Housing: No Difficulty Paying Gas/Electric Bills: No Difficulty Paying for Meds: No Currently Unemployed: No Education: High School Diploma/GED Difficulty w/ Childcare or Family Care: No Living arrangements: with family Gender identity (if verbalized by the patient): Male Spiritual care concerns: No Exam Narrative: EXAMINATION OF ORGAN SYSTEMS/BODY AREAS: Constitutional: Vital signs per nursing GENERAL:[No acute distress, non-toxic appearing.] HEAD: Normal with no signs of head trauma. EYES: EOMI, conjunctiva normal ENT: Hearing grossly intact LUNGS: Nonlabored breathing. HEART: [Regular rate and rhythm] ABD: [Soft], [nontender to palpation] EXT: Normal range of motion SKIN: [No rashes or lesions.] NEURO: [Alert and oriented x 3. No gross focal sensory or strength deficits.] PSYCH: Normal affect Course Vital Signs Vital signs: Vital Signs Temperature 97.8 F 11/18/22 16:07 Pulse Rate 87 11/18/22 16:07 Respiratory Rate 18 11/18/22 16:07 Blood Pressure 148/63 H 11/18/22 16:07 Pulse Oximetry 97 11/18/22 16:07 Temperature 97.3 F L 11/19/22 03:34 Pulse Rate 73 11/19/22 06:00 Respiratory Rate 20 11/19/22 03:34 Blood Pressure 171/78 H 11/19/22 03:34 Pulse Oximetry 96 11/19/22 03:34 Oxygen Delivery Room Air 11/19/22 04:00 MDM - Chest Pain MDM Narrative Medical decision making narrative: ED COURSE AND MEDICAL DECISION MAKIN-year-old male presenting with ch
--- NOTE | 2022-11-19 10:11 | PM.CNCAR ---
Assessment and Plan Assessment and plan (1) Chest pain: Code(s): R07.9 - Chest pain, unspecified Status: Acute Plan This is an 81-year-old man who appears to have noncardiac chest pain. His discomfort was intermittent on Tuesday but then continuous all day Tuesday in most of the day . In the face of all of that his electrocardiogram looks benign and his troponin levels are entirely normal. If this was ischemic chest pain his troponin levels clearly should not be remaining unremarkable like this. He is not having any exertional symptoms that sound like myocardial ischemia and feels very comfortable this morning and his cardiovascular exam is unremarkable. At this point I do not believe he needs to be remain hospitalized for further ischemic workup. Please contact me if you have any questions regarding this opinion. Larry Felix MD [facility] History of Present Illness History of Present Illness Consult date/time: 11/19/22 10:11 Reason For Visit: chest pain r/o Narrative: This is a very nice 81-year-old man I am seeing this morning at the request of the hospitalist because of some chest pain for which he was seen last evening in the emergency room in that admitted to the hospital overnight for observation. He feels well this morning and denies any complaints of any kind. He states that his symptoms of chest pain began on Tuesday of this past week he was having some intermittent pain that he describes as a dull central achiness in the substernal region. It did not radiate to any other location it was not associated with shortness of breath nausea vomiting or diaphoresis and it was occurring intermittently at Tuesday and not nonexertional fashion. On Tuesday the symptom was there the entire day without in it without relief and lasted into afternoon and so he eventually decided to come into the emergency room to have this evaluated. In the emergency department his cardiac evaluation was negative his electrocardiogram looks unremarkable his troponin levels were negative he was admitted to IMU for further observation/evaluation. He states the discomfort essentially faded away on its own and has subsided he is not having any complaints this morning. Despite all that his troponin levels have remained negative x3 sets. He is in older man but he does state he leads a reasonably normally active lifestyle and does not noticed any symptoms of exertional chest discomfort or heaviness he is not experiencing any orthopnea PND or lower extremity edema. He is not previously known to have any cardiac problems. He does have hypertension which is being controlled with losartan as well as non insulin-dependent diabetes for which he takes metformin. 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 Cycle of chemotherapy finished last summer. Review of Systems Constitutional: Constitutional: Reports no additional constitutional complaints Eyes: Eyes: Reports no additional eye complaints ENT: Reports system reviewed and no additional complaints, except as documented Cardiovascular: Cardiovascular: Reports as per HPI Respiratory: Respiratory: Reports no additional respiratory complaints Gastrointestinal: Gastrointestinal: Reports no additional gastrointestinal complaints Musculoskeletal: Musculoskeletal: Reports no additional musculoskeletal complaints Integumentary/Breasts: Skin/Breast: Reports system reviewed and no additional complaints, except as docu Neurologic: Reports system reviewed and no additional complaints, except as documented Endocrine: Endocrine: Reports no additional endocrine complaints Hematologic/Lymphatic: Hematologic/Lymphatic: Reports no additional hematologic/lymphatic complaints Allergic/Immunologic: Jorge
--- NOTE | 2022-11-19 12:50 | PM.SD2 ---
Same Day Admit/Disch: HPI History of Present Illness Chief complaint: chest pain r/o Narrative: Michael Wang is a 81 year old male ED-HPI narrative: Patient states that he had an episode of chest pain yesterday that seemed to resolve, but today it came back and was quite persistent.? Denies any recent trauma, has never had chest pain in the past, no shortness of breath.? 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 patient in chest pain he is admitted to further evaluate will consult machinery mover further recommendation PMF Past Medical History Medical History Allergic rhinitis, unspecified (10/02/15) BCC (basal cell carcinoma of skin) Bilateral mastodynia Bleeding nose Chronic diastolic (congestive) heart failure COPD with exacerbation Essential (primary) hypertension History of tobacco use quit 1984 Hypersomnia Mild intermittent asthma without complication Postnasal drip Rhinitis Simple chronic bronchitis Family History Family History Father Acute myocardial infarction, Onset Age: 59 Mother Family history of chronic obstructive pulmonary disease Social History Social History Smoking packs per day: 1 Smoking cigarettes per day: 20.0 Years smoked: 20 Smoking pack-years: 20.00 Smoking status: Former smoker Tobacco type: cigarettes Second hand tobacco smoke exposure: No Smoking end date: 02/19/80 Alcohol intake: current Alcohol use details: rarely Substance use: never Substance use type: does not use Lack of Transportation: No Lack of Food: Never True Current Housing: I Have Housing Concerned About Future Housing: No Difficulty Paying Gas/Electric Bills: No Difficulty Paying for Meds: No Currently Unemployed: No Education: High School Diploma/GED Difficulty w/ Childcare or Family Care: No Living arrangements: with family Gender identity (if verbalized by the patient): Male Spiritual care concerns: No Same Day Admit/Disch: Med Pre-admit Medications Home Medications Medication Instructions Recorded Confirmed Type aspirin 81 mg tablet,delayed 81 mg PO DAILY 09/19/19 11/19/22 History release cholecalciferol (vitamin D3) 25 1,000 unit PO DAILY 09/19/19 11/19/22 History mcg (1,000 unit) capsule (Vitamin D3) multivitamin 1 tablet PO DAILY 09/19/19 11/19/22 History vitamin E 400 unit tablet 800 unit PO DAILY 07/30/21 11/19/22 History albuterol sulfate 90 mcg/actuation 1 inh inhalation Q4H PRN shortness 03/10/22 11/19/22 Rx aerosol inhaler (Ventolin HFA) of breath or wheezing #18 grams fluticasone furoate 100 See Rx Instructions .Route 05/03/22 11/19/22 Rx mcg-vilanterol 25 mcg/dose .COMPLEX #180 ea inhalation powder (Breo Ellipta) furosemide 40 mg tablet 40 mg PO TID 90 days #270 tabs 05/06/22 11/19/22 Rx losartan 100 mg tablet 100 mg PO DAILY #90 tabs 06/14/22 11/19/22 Rx metoprolol succinate 50 mg See Rx Instructions .Route 07/06/22 11/19/22 Rx tablet,extended release 24 hr .COMPLEX #90 tabs metformin 500 mg tablet 250 mg PO DAILY #15 tabs 08/25/22 11/19/22 Rx potassium chloride 20 mEq 20 meq PO TID 90 days #270 tabs 09/01/22 11/19/22 Rx tablet,extended release(part/cryst) (Klor-Con M) Exam Narrative: Patient is comfortable, NAD HEENT: eyes are clear and none icteric LUNGS:CTA HEART: RR S1S2 ABD: BS+, Soft and nontender Lower extremities: no edema SKIN: nonjaundiced Neuro: grossly intact. DS: Data Data Completed and Pending Labs on day of discharge: Labs from last 24 hours 11/18/22 11/18/22 11/18/22 23:14 22:07 22:07 WBC RBC Hgb Hct MCV MCH MCHC RDW Plt Count MPV Immature Gran % (Auto) Neut % (Auto) Lymph % (Auto) [place] % (Auto) Eos % (Auto) Baso % (Auto) Lymp
== END 2022-11-19 13:32 | disposition home or self-care (01) ==
LOC: ANHED 11-19 02:32 → ANHIMU 11-19 12:50
PROVIDERS: Emergency Medicine; Admitting Provider Family Medicine; Emergency Provider Emergency Medicine; PCP Internal Medicine; Visit Provider Family Medicine
DX: R07.9 Chest pain, unspecified (principal); R06.02 Shortness of breath; C91.10 Chronic lymphocytic leukemia of B-cell type not having achieved remission; C61 Malignant neoplasm of prostate; I11.0 Hypertensive heart disease with heart failure; I50.32 Chronic diastolic (congestive) heart failure; J44.9 Chronic obstructive pulmonary disease, unspecified; J45.20 Mild intermittent asthma, uncomplicated; F10.90 Alcohol use, unspecified, uncomplicated; Z92.21 Personal history of antineoplastic chemotherapy; Z87.891 Personal history of nicotine dependence; Z79.51 Long term (current) use of inhaled steroids; Z79.84 Long term (current) use of oral hypoglycemic drugs; Z79.82 Long term (current) use of aspirin; Z79.899 Other long term (current) drug therapy; Z82.49 Family history of ischemic heart disease and other diseases of the circulatory system
CPT/HCPCS: 36415; 71046; 80053; 83690; 84484; 85025; 85380; 85610; 85730; 87637; 93005; 99285; G0378

== ENCOUNTER 2022-11-29 17:19 | Emergency (ER) | payer OTHER, SELFPAY ==
[2022-11-29] VITALS (11 sets, daily range): BP systolic 143–174; BP diastolic 66–88; PULSE 71–111; RESP 18–33; TEMP 36.6; O2SAT 91–97
--- NOTE | ~2022-11-29 | CT_ITS ---
EXAMINATION: CTA chest PE protocol DATE: 11/29/2022 20:04 INDICATION: shortness of breath TECHNIQUE: Computed tomography angiography (CTA) of the chest was performed with 200 mL Omnipaque-350 intravenous contrast timed to evaluate the pulmonary arteries, due to poor arterial enhancement in t he initial scan. Coronal maximum intensity projection 3D-reconstructions were created by the technolo [facility]. The dose-length product (DLP) was 2852.45 mGy-cm. Automated exposure control and iterative kiki nstruction technique were employed. COMPARISON: None. FINDINGS: Lung parenchyma and airways: Mild senescent change. Minimal dependent and basilar scar/atelectasis. Pleura: Unremarkable. Thoracic inlet, axillae and chest wall: Unremarkable. Thoracic aorta: Mild arch ectasia and calcification. Mediastinum: Normal. Heart and pericardium: Normal. Coronary artery calcifications: Moderate. Upper abdomen: No significant finding. Bones: No acute osseous finding. Pulmonary arteries: Study quality: Adequate. No pulmonary emboli detected. IMPRESSION: No CT evidence of acute pulmonary embolus. Reviewed, dictated and finalized at location K. ETES NURSE
--- NOTE | 2022-11-29 18:53 | ECG_ITS ---
Measurements Intervals [place] Rate: 95 P: [place]: 0 QRS: -23 QRSD: 110 T: 45 QT: 360 QTc: 453 Interpretive Statements POSSILBY SINUS RHYTHM, BASELINE ARTIFACT LIMITS INTERPRETATION ABNORMAL RHYTHM ECG COMPARED TO ECG 11/18/2022 16:01:06 NO SIGNIFICANT CHANGES Electronically Signed On 11-30-2022 16:15:03 AVIATION TECHNICIAN by Dalton Valenzuela M.D.
[2022-11-29 19:10] LABS: Hematocrit 42.7 % (42.0-52.0); Hemoglobin 13.9 g/dL (14.0-18.0); Immature Platelet Fraction Pct 5.1 % (0.9-11.2); Mean Corpuscular HGB Conc 32.6 g/dl (32-36); Mean Corpuscular Hemoglobin 31.6 pg (26-34); Mean Platelet Volume 10.1 fl (7.4-10.4); Platelet Count Result 79 k/mm3 (150-375); Red Cell Distribution Width 15.2 % (11.5-14.5); White Blood Count 18.2 K/mm3 (4.5-10.0)
[2022-11-29 19:20] LABS: Alanine Aminotransferase 49 U/L (6-50); Albumin Level 4.3 g/dL (3.5-5.1); Alkaline Phosphatase 478 U/L (38-126); Anion Gap 6 mmol/L (8-16); Aspartate Amino Transferase 60 U/L (17-59); Bilirubin,Total 0.5 mg/dL (0.2-1.3); Blood Urea Nitrogen 13 mg/dL (9-20); Calcium 8.3 mg/dL (8.4-10.2); Carbon Dioxide 29 mmol/L (22-30); Chloride 95 mmol/L (98-107); Estimated CRCL calculation 76 ml/min; Estimated Glomerular Filt Rate > 60; Glucose 122 mg/dL (65-110); Potassium 4.1 mmol/L (3.4-5.0); Sodium 130 mmol/L (137-145)
[2022-11-29 19:32] LABS: NT Pro B Type Natriuretic Pept 194 pg/mL (19.9-100); Troponin I < 0.012 ng/mL (0.000-0.034)
[2022-11-29 19:35] LABS: INR 1.1; Prothrombin Time 13.3 Seconds (11.1-14.7)
[2022-11-29 19:37] LABS: Partial Thromboplastin Time 33.4 SECONDS (22.3-36.8)
[2022-11-29 19:42] LABS: Band Neutrophils Percent 4 % (0-6); Lymphocytes Absolute Manual 3.27 K/mm3 (1.1-4.5); Lymphocytes Percent Manual 18 % (18-44); Metamyelocytes Percent 2 %; Monocytes Absolute Manual 6.18 K/mm3 (0.1-0.90); Monocytes Percent Manual 34 % (3-9); Neutrophils Absolute Manual 8.37 K/mm3 (1.3-6.7); Neutrophils Percent Manual 42 % (46-73); Platelet Estimate Decreased (Adequate); Total Cells Counted 100
[2022-11-29 19:43] LABS: Atypical Lymphocytes Present; Schistocytes None Seen (NORMAL)
[2022-11-29] MEDS: KETOROLAC 15 MG/ML VIAL (*BKC) IV PUSH (20:48)
[2022-11-29] MEDS: diazePAM INJ (*CRX) 10 MG/2 ML SYRINGE 5 MG IV PUSH (20:48)
[2022-11-29] MEDS: ALBUTEROL SULFATE NEB 2.5 MG/3 ML INH INHALATION (22:24)
[2022-11-29] MEDS: IPRATROPIUM BR 0.02% INH SOLN 0.5 MG/2.5 ML VIAL INHALATION (22:24)
--- NOTE | 2022-11-29 22:30 | ED.SOB ---
HPI - SOB/Dyspnea General Chief Complaint: Shortness of Breath/Dyspnea Stated Complaint: difficulty catching breath Time Seen by Provider: 11/29/22 18:25 History of Present Illness HPI Narrative: Patient patient is an 81-year-old male who presents ER with shortness of breath. Began yesterday but is worsening today. Denies fevers chills or sweats. Has some pain in his chest and back when he takes a deep breath. Feels sharp and cramping. He is taking no pain medicine. He has history of COPD. Denies improvement with inhalers at home. No lower extremity swelling or cramping. No history of PE. Has some increased discomfort and shortness of breath when lying down. Related Data Home Medications Medication Instructions Recorded Confirmed aspirin 81 mg tablet,delayed 81 mg PO DAILY 09/19/19 11/19/22 release cholecalciferol (vitamin D3) 25 1,000 unit PO DAILY 09/19/19 11/19/22 mcg (1,000 unit) capsule (Vitamin D3) multivitamin 1 tablet PO DAILY 09/19/19 11/19/22 vitamin E 400 unit tablet 800 unit PO DAILY 07/30/21 11/19/22 Allergies Allergy/AdvReac Type Severity Reaction Status Date / Time No Known Allergies Allergy Verified 11/29/22 17:40 Review of Systems Review of Systems: All systems reviewed & are unremarkable except as noted in HPI and below Constitutional: Constitutional: Denies chills, Denies fatigue and Denies fever(s) ENT: Denies nasal congestion and Denies sore throat Cardiovascular: Cardiovascular: Reports chest pain, Denies rapid heart rate and Denies radiating jaw, neck or arm pain Respiratory: Respiratory: Reports cough, Reports dyspnea and Denies wheezing Gastrointestinal: Gastrointestinal: Denies abdominal pain, Denies nausea and Denies vomiting Musculoskeletal: Musculoskeletal: Reports back pain and Denies arthralgias [facility] Past Medical History Medical History Allergic rhinitis, unspecified (10/02/15) BCC (basal cell carcinoma of skin) Bilateral mastodynia Bleeding nose Chronic diastolic (congestive) heart failure COPD with exacerbation Essential (primary) hypertension History of tobacco use quit 1984 Hypersomnia Mild intermittent asthma without complication Postnasal drip Rhinitis Simple chronic bronchitis Family History Family History Father Acute myocardial infarction, Onset Age: 59 Mother Family history of chronic obstructive pulmonary disease Social History Social History Smoking packs per day: 1 Smoking cigarettes per day: 20.0 Years smoked: 20 Smoking pack-years: 20.00 Smoking status: Former smoker Tobacco type: cigarettes Second hand tobacco smoke exposure: No Smoking end date: 02/19/80 Alcohol intake: current Alcohol use details: rarely Substance use: never Substance use type: does not use Lack of Transportation: No Lack of Food: Never True Current Housing: I Have Housing Concerned About Future Housing: No Difficulty Paying Gas/Electric Bills: No Difficulty Paying for Meds: No Currently Unemployed: No Education: High School Diploma/GED Difficulty w/ Childcare or Family Care: No Living arrangements: with family Gender identity (if verbalized by the patient): Male Spiritual care concerns: No Exam Narrative: GENERAL: Well-appearing, well-nourished, and in no acute distress. HEAD: Normocephalic, atraumatic. EYES: PERRL and EOMI. ENT: Mucous membranes moist. CHEST: Clear to auscultation. No respiratory distress. HEART: Regular rate and rhythm. Normal peripheral pulses. ABDOMEN: Soft, nontender, nondistended. EXTREMITIES: Normal range of motion. No edema. SKIN: Warm, dry, no rash. NEURO: Alert and oriented x3. PSYCH: Normal mood and affect. Course Course Emergency Course: Patient ambulates without hypoxia. Pain in back and chest improved with Toradol a
== END 2022-11-29 23:23 | disposition home or self-care (01) ==
PROVIDERS: Emergency Provider Emergency Medicine; PCP Internal Medicine
DX: J44.1 Chronic obstructive pulmonary disease with (acute) exacerbation (principal); D69.6 Thrombocytopenia, unspecified; R25.2 Cramp and spasm; I10 Essential (primary) hypertension; J45.20 Mild intermittent asthma, uncomplicated; Z85.828 Personal history of other malignant neoplasm of skin; Z87.891 Personal history of nicotine dependence; Z79.82 Long term (current) use of aspirin; Z79.84 Long term (current) use of oral hypoglycemic drugs; R94.31 Abnormal electrocardiogram [ECG] [EKG]
CPT/HCPCS: 36415; 71275; 80053; 83880; 84484; 85025; 85055; 85610; 85730; 93005; 94640; 96374; 96375; 99284; J1885; J3360; Q9967

== ENCOUNTER 2022-12-02 12:16 | Inpatient (IN) | payer OTHER, SELFPAY ==
[2022-12-02] VITALS (13 sets, daily range): BP systolic 143–154; BP diastolic 71–86; PULSE 87–109; RESP 16–27; TEMP 36.4–36.6; O2SAT 91–100; BMI 37.2
--- NOTE | ~2022-12-02 | CT_ITS ---
EXAMINATION: CT brain wo con DATE: 12/02/2022 12:45 INDICATION: Left facial numbness. Bilateral lower extremity weakness. TECHNIQUE: Computed tomography (CT) of the head was performed without intravenous contrast. The mA wa s adjusted according to patient size. Iterative reconstruction technique was employed. The dose-lengt h product was 681.00 mGy-cm. COMPARISON: Head CT 08/18/2018 FINDINGS: There is no intracranial hemorrhage, acute infarction, or abnormal intracranial mass lesion . There are scattered areas of low attenuation in the cerebral white matter, which is within normal l imits for the patient's age. The ventricles are normal in size. There is mucosal thickening in the pa ranasal sinuses. There are likely changes of ocular lens replacement surgeries. The mastoid air cells are normal. IMPRESSION: 1. Normal aging brain. Reviewed, dictated and finalized at location A. OR MEDICAL TRANSCRIPTIONIST IMPRESSION: 1. Normal aging brain.
--- NOTE | ~2022-12-02 | US_ITS ---
EXAMINATION: US venous doppler [facility] DATE: 12/07/2022 21:35 INDICATION: ELEVATED D DIMER . TECHNIQUE: Grayscale images without and with compression and Doppler images of the bilateral lower ex tremity veins were obtained. COMPARISON: None FINDINGS: The right common femoral vein, profunda (deep) femoral vein, femoral vein, popliteal vein, peroneal v ein, posterior tibial veins, gastrocnemius vein, and greater saphenous vein are patent. The left common femoral vein, profunda femoral vein, femoral vein, popliteal vein, peroneal vein, pos terior tibial veins, gastrocnemius vein, and greater saphenous vein are patent. IMPRESSION: 1. Patent bilateral lower extremity veins. No evidence of deep venous thrombosis. Reviewed, dictated and finalized at location K. CTOR DIGITAL ANALYTICS IMPRESSION: 1. Patent bilateral lower extremity veins. No evidence of deep venous thrombos is.
--- NOTE | ~2022-12-02 | XR_ITS ---
Portable chest x-ray Comparison: 12/02/2022 Clinical History: Hypoxia Findings: Left-sided Mediport is unchanged. No consolidation or pleural effusion evident. Cardiomed iastinal silhouette is stable. Bones and soft tissues are unremarkable. Impression: Clear lungs. Left-sided Mediport. Reviewed, dictated and finalized at location . ING MACHINE OPERATOR Impression: Clear lungs. Left-sided Mediport.
--- NOTE | ~2022-12-02 | CT_ITS ---
EXAMINATION: CT abdomen pelvis wo con DATE: 12/08/2022 14:19 INDICATION: Increased abdominal pain and distention TECHNIQUE: Computed tomography (CT) of the abdomen and pelvis was performed without intravenous contr ast. Automated exposure control and iterative reconstruction technique were employed. The dose-length product was 1396.73 mGy-cm. COMPARISON: None FINDINGS: Small bilateral posterior layering pleural effusions. There is dependent compressive atelectasis in t he bilateral lower lobes with additional mild bibasilar atelectasis at the lingula. Heart size is nor mal. Atherosclerotic coronary artery calcifications. Small mild aortic valve calcification. No perica rdial effusion. Tip of a central venous catheter in the caudal-most superior vena cava near the the s uperior cavoatrial junction. Liver, gallbladder, spleen, pancreas bilateral adrenal glands are normal . Tiny bilateral nonobstructing nephrolithiasis with 1 mm stones at the interpolar region of the righ t kidney and lower pole of the left kidney. There are bilateral renal cysts the larger on the left me asuring 4.1 cm in maximal diameter. No hydronephrosis. Bilateral ureters are normal with no ureteroli thiasis. Gonzalez catheter within the decompressed bladder. Status post prostatectomy with surgical clip s at the prostatectomy bed. No free intraperitoneal gas or fluid. No pathologically enlarged abdomina l or pelvic lymphadenopathy. Moderate amount of stool and gas scattered throughout the colon. Additio nal gas-filled but not likely dilated loops of small bowel. Normal appendix. Small fat-containing umb ilical hernia. Moderate thoracolumbar spondylosis with bridging osteophytes at multiple levels in the spine, consistent with diffuse idiopathic skeletal hyperostosis (DISH). IMPRESSION: 1. Moderate amount of colonic stool and moderate amount of gas scattered throughout multiple loops of nondilated large and small bowel. No bowel obstruction. 2. Bilateral nonobstructing nephrolithiasis. Reviewed, dictated and finalized at location A. ANCE CONSULTANT IMPRESSION: 1. Moderate amount of colonic stool and moderate amount of gas scattered throug hout multiple loops of nondilated large and small bowel. No bowel obstruction. 2. Bilateral nonobstructing nephrolithiasis.
--- NOTE | ~2022-12-02 | CT_ITS ---
EXAMINATION: CT abdomen pelvis w con INDICATION: Right upper quadrant pain, leukemia TECHNIQUE: Computed tomographic images of the abdomen and pelvis were obtained after the administrati on of 100 cc of Omnipaque 350 intravenous contrast. The dose-length product (DLP) was 1486.90 mGy-cm. Automated exposure control and iterative reconstruction technique were employed. COMPARISON: 04/26/2018 FINDINGS: Minimal dependent atelectasis is present in the lung bases. The heart size is normal. There are small pleural effusions. The liver, spleen, pancreas, gallbladder, and adrenal glands are normal . Cysts of the kidneys measure up to 4.5 mm on the left. There is a 2 mm nonobstructing stone of the left kidney. No pathologically enlarged abdominal or pelvic lymph nodes are identified. No free intra peritoneal gas or evidence of bowel obstruction. There is a large volume of stool in the right colon. There is severe lumbar spondylosis. IMPRESSION: 1. Large volume of stool in the right colon. 2. Nonobstructing left nephrolithiasis. Reviewed, dictated and finalized at location A. MANAGER
--- NOTE | ~2022-12-02 | XR_ITS ---
EXAMINATION: XR chest 2V DATE: 12/02/2022 12:57 INDICATION: Cough and shortness of breath TECHNIQUE: PA and lateral views of the chest were obtained. COMPARISON: Chest radiograph dated 11/18/[address] dated 11/29/2022 FINDINGS: Left internal jugular central venous port catheter with distal tip at the caudal superior vena cava. Mild lingular atelectasis along side a prominent left paracardial fat pad. No other airspace opacitie s, pulmonary edema, pleural effusion or pneumothorax. Heart size is normal. There are bridging osteop hytes at multiple levels in the spine, consistent with diffuse idiopathic skeletal hyperostosis (DISH ). IMPRESSION: 1. No acute cardiopulmonary disease. Reviewed, dictated and finalized at location A. CIATE ACCOUNT EXECUTIVE
--- NOTE | ~2022-12-02 | BM_ITS ---
EXAMINATION: CCL bone marrow asp w bx diag ORDER COMPLETED DATE: 12/06/2022 15:33 INDICATION: Acute leukemia TECHNIQUE: A time-out was performed to verify the patient's name, date of , and procedure to b e performed. The procedure including the risks and benefits was discussed with the patient. Risks dis cussed included bleeding, infection, nerve injury and allergic reaction. The patient understood the r isks and agreed to proceed. The skin overlying the right posterior iliac spine was prepped and draped in usual sterile fashion. Anesthetic was administered with 1% lidocaine subcutaneously. An 11 gauge needle was inserted into the right ilium with fluoroscopic guidance. Bone marrow was aspirated. An 8 gauge needle was then inserted into the right ilium with fluoroscopic guidance. A core bone marrow b iopsy was obtained. The needle was removed and the entry site was cleaned and dressed. There were no immediate complications. A total of 2 fluoroscopic images were recorded. Fluoroscopy exposure time w as 0.1 minutes. FINDINGS: Real-time fluoroscopy demonstrates the biopsy needle tip overlying the right posterior grady c spine. IMPRESSION: 1. Successful fluoroscopic guided bone marrow aspiration. 2. Successful fluoroscopic guided bone marrow biopsy. Reviewed, dictated and finalized at location A. RUNNER
--- NOTE | 2022-12-02 12:27 | ECG_ITS ---
Measurements Intervals [place] Rate: 107 P: 104 [place]: 202 QRS: -18 QRSD: 102 T: 73 QT: 330 QTc: 442 Interpretive Statements SINUS TACHYCARDIA WITH OCCASIONAL VENTRICULAR PREMATURE COMPLEXES POSSIBLE ANTERIOR MYOCARDIAL INFARCTION , PROBABLY OLD [30 ms Q WAVE IN V3/V4, OR R < 0.2 mV IN V4] ABNORMAL RHYTHM ECG COMPARED TO ECG 11/29/2022 20:15:16 SINUS TACHYCARDIA NOW PRESENT Electronically Signed On 12-02-2022 14:59:11 COMMUNITY RELATIONS MANAGER by Dalton Valenzuela M.D.
[2022-12-02 12:43] LABS: Hematocrit 42.9 % (42.0-52.0); Hemoglobin 13.8 g/dL (14.0-18.0); Immature Platelet Fraction Pct 5.7 % (0.9-11.2); Mean Corpuscular HGB Conc 32.2 g/dl (32-36); Mean Corpuscular Hemoglobin 31.7 pg (26-34); Mean Corpuscular Volume 98.6 fl (80-100); Mean Platelet Volume 9.9 fl (7.4-10.4); Platelet Count Result 84 k/mm3 (150-375); Red Blood Count 4.35 M/mm3 (4.6-6.20); Red Cell Distribution Width 15.3 % (11.5-14.5); White Blood Count 31.3 K/mm3 (4.5-10.0)
[2022-12-02 12:51] LABS: INR 1.1; Prothrombin Time 13.5 Seconds (11.1-14.7)
[2022-12-02 12:52] LABS: Partial Thromboplastin Time 30.2 SECONDS (22.3-36.8)
[2022-12-02 13:09] LABS: Band Neutrophils Percent 4 % (0-6); Eosinophils Absolute Manual 0.31 K/mm3 (0.02-0.5); Eosinophils Percent Manual 1 % (0-4); Lymphocytes Absolute Manual 1.56 K/mm3 (1.1-4.5); Lymphocytes Percent Manual 5 % (18-44); Metamyelocytes Percent 2 %; Monocytes Absolute Manual 17.21 K/mm3 (0.1-0.90); Monocytes Percent Manual 55 % (3-9); Neutrophils Absolute Manual 11.58 K/mm3 (1.3-6.7); Neutrophils Percent Manual 33 % (46-73); Total Cells Counted 100
[2022-12-02 13:10] LABS: Nucleated Red Blood Cells 5 %; Platelet Estimate Decreased (Adequate); Schistocytes None Seen (NORMAL)
[2022-12-02 15:08] LABS: Alanine Aminotransferase 55 U/L (6-50); Albumin Level 4.1 g/dL (3.5-5.1); Alkaline Phosphatase 1061 U/L (38-126); Anion Gap 6 mmol/L (8-16); Aspartate Amino Transferase 76 U/L (17-59); Bilirubin,Total 0.6 mg/dL (0.2-1.3); Blood Urea Nitrogen 18 mg/dL (9-20); Calcium 8.5 mg/dL (8.4-10.2); Carbon Dioxide 28 mmol/L (22-30); Chloride 93 mmol/L (98-107); Estimated CRCL calculation 63 ml/min; Estimated Glomerular Filt Rate > 60; Glucose 139 mg/dL (65-110); Potassium 4.7 mmol/L (3.4-5.0); Sodium 127 mmol/L (137-145)
--- NOTE | 2022-12-02 15:35 | ED.NEUROSD ---
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 Pt states he woke in the middle of the night with left sided faical tingling. States it feels like when he receives lidocaine at the dentist. Pt was able to fall back asleep but the sensation continued throughout the day. States he now has some tingling on the right side of his face. No weakness, speech changes, vision changes, vertigo, ataxia. No fevers, headache, chest pain, shortness of breath, abdominal pain, vomiting, diarrhea. Pt does complain of generalized weakness for several weeks. Related Data Home Medications Medication Instructions Recorded Confirmed aspirin 81 mg tablet,delayed 81 mg PO DAILY 09/19/19 12/02/22 release cholecalciferol (vitamin D3) 25 1,000 unit PO DAILY 09/19/19 12/02/22 mcg (1,000 unit) capsule (Vitamin D3) multivitamin (Daily Multi-Vitamin 1 tablet PO DAILY 09/19/19 12/02/22 tablet) vitamin E 400 unit tablet 800 unit PO DAILY 07/30/21 12/02/22 fluticasone furoate 100 See Rx Instructions .Route .COMPLEX 12/02/22 12/02/22 mcg-vilanterol 25 mcg/dose inhalation powder (Breo Ellipta) losartan 100 mg tablet (Cozaar) 100 mg PO DAILY 12/02/22 12/02/22 metoprolol succinate 50 mg 50 mg PO DAILY 12/02/22 12/02/22 tablet,extended release 24 hr (Toprol XL) Allergies Allergy/AdvReac Type Severity Reaction Status Date / Time No Known Allergies Allergy Verified 11/30/22 13:29 Review of Systems Review of Systems: All systems reviewed & are unremarkable except as noted in HPI and below PMFSH Past Medical History Medical History Allergic rhinitis, unspecified (10/02/15) Asthma-COPD overlap syndrome Basal cell carcinoma Nose, cheek, back BCC (basal cell carcinoma of skin) Bilateral mastodynia Chronic diastolic (congestive) heart failure Essential (primary) hypertension Gynecomastia History of tobacco use quit 1984 Hypovitaminosis D Myeloid sarcoma (~06/2021) Obesity (BMI 30-39.9) DANIELLE (obstructive sleep apnea) Prostate cancer (~2013) Surgical History Surgical History Status post cataract extraction of both eyes with insertion of intraocular lens Family History Family History Father Acute myocardial infarction, Onset Age: 59 Mother Family history of chronic obstructive pulmonary disease Social History Social History Social History: The patient lives at home with his of 62 years. They had 2 children. Their daughter still lives with them as she has a history of intellectual and physical disability. 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 He smoked 1 pack cigarettes per day is for approximately 20 years but quit smoking in the when he cell his father not dying of cancer. He rarely drinks alcohol and only in moderation. He denies history of illicit substance use. Code status: DNR/DNI per patient request Surrogate decision maker: Smoking packs per day: 1 Smoking cigarettes per day: 20.0 Years smoked: 20 Smoking pack-years: 20.00 Smoking status: Former smoker Tobacco type: cigarettes Second hand tobacco smoke exposure: No Smoking end date: 02/19/80 Alcohol intake: never Alcohol use details: rarely Substance use: never Substance use type: does not use Lack of Transportation: No Lack of Food: Never True Current Housing: I Have Housing Concerned About Future Housing: No Difficulty Paying Gas/Electric Bills: No Difficulty Paying for Meds: No Currently Unemployed: No Education: High School Di
[2022-12-02] MEDS: SODIUM CHLORIDE 0.9% IV 1,000 ML 999 ML IV CONT (15:50)
[2022-12-02 18:22] LABS: Influenza A QL RT-PCR Negative (Negative); Influenza B QL RT-PCR Negative (Negative); SARS-CoV-2 RNA PCR Negative
--- NOTE | 2022-12-02 20:40 | ADMGEN ---
This patient, Michael Wang, was admitted to Medical Room 340-01. Patient/family oriented to hospital policies and general routines including ID bracelet, bed and alarms, visiting hours, pain management, procedures, bathroom and other care routines, personal items, smoking policy, room service/diet, and visiting hours. Information on how to activate the Rapid Response Team has been discussed. Patient/Family are encouraged to report perceived risks to care and to ask questions if they do not understand what they are told or what they should do.
--- NOTE | 2022-12-02 21:25 | PM.IMHP ---
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 Patient's symptoms began at 02:00 but patient did not present to the ER until around 17:30. Patient woke from sleep at 02:00 with left facial numbness and tingling. He reports that the numbness is from the to the corner of the mouth on the left and along his mandibular line. He reports that sensation is similar to when he gets lidocaine. Persistent symptoms there. He also is having some paresthesias on the right side to a lesser extent that started later in the day. He reports generally feeling weaker for the last couple of weeks. He denies any localizing weakness of his extremities. However he has been having progressively more weakness and fatigue for the last couple of weeks and new increased abdominal distension. He states that he has had a 12 lb weight loss over the last 2-3 weeks. He has sensation of early satiety and poor appetite. He denies any nausea or vomiting. He denies sensation of globus. His speech was clear. He denies visual disturbances. He had no noticeable facial droop unequal therapeutic strategy lead strength. His symptoms were accompanied by headache that began an hour prior to presentation to the ER. He received Tylenol in the ER without relief in his headache. He has COPD and was short of breath in the ER. Denies chest pain. He had outpatient labs performed November 29 which demonstrated new leukocytosis with white count around 18,000, and new thrombocytopenia of 79. Since early November the patient has also had elevated transaminases including alk-phos which is trended up to greater than 1000 since November 18. Patient's blood pressures have been moderately elevated since arrival to the ER ranging between 140s to 170 systolic over diastolics between 66 and 88. He reports he has had chronic lower extremity swelling for years but his edema is actually improved over recent weeks. On exam he has some nontender right submandibular lymphadenopathy. On exam patient has obvious wheezing. He reports that his breathing is at his baseline. He denies any increased shortness of breath. 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 He reports that he has been in remission since March 2022. Review of Systems Review of Systems: 12 systems were reviewed with pertinent positives and negatives per HPI. Except as documented in the HPI, all other systems were reviewed and are negative. [facility] Past Medical History Medical History (Updated 12/03/22 @ 06:45 by Leticia Bermudez DO) Allergic rhinitis, unspecified (10/02/15) Asthma-COPD overlap syndrome Basal cell carcinoma Nose, cheek, back BCC (basal cell carcinoma of skin) Bilateral mastodynia Chronic diastolic (congestive) heart failure Essential (primary) hypertension Gynecomastia History of tobacco use quit 1984 Hypovitaminosis D Myeloid sarcoma (~06/2021) Obesity (BMI 30-39.9) DANIELLE (obstructive sleep apnea) Prostate cancer (~2013) Surgical History Surgical History (Updated 12/03/22 @ 06:36 by Leticia Bermudez DO) Status post cataract extraction of both eyes with insertion of intraocular lens Family History Family History Father Acute myocardial infarction, Onset Age: 59 Mother Family history of chronic obstructive pulmonary disease Social History Social History (Updated 12/03/22 @ 06:41 by Leticia Bermudez DO) Social History: The patient lives at home with his of 62 years. They had 2 children. Their daughter still lives
[2022-12-02] MEDS: traMADol HCL (*CRX) 50 MG TABLET PO (21:47)
[2022-12-03] VITALS (19 sets, daily range): BP systolic 108–144; BP diastolic 48–62; PULSE 78–94; RESP 16–20; TEMP 36–36.6; O2SAT 81–100
[2022-12-03] MEDS: ACETAMINOPHEN 325 MG TABLET 650 MG PO (00:03)
[2022-12-03] MEDS: ALBUTEROL SULFATE NEB 2.5 MG/3 ML INH INHALATION ×4 (02:00→20:23)
[2022-12-03] MEDS: IPRATROPIUM BR 0.02% INH SOLN 0.5 MG/2.5 ML VIAL INHALATION ×4 (02:00→20:23)
[2022-12-03] MEDS: traMADol HCL (*CRX) 50 MG TABLET PO ×3 (06:35→23:59)
[2022-12-03] MEDS: TIZANIDINE HCL 2 MG TABLET PO ×3 (06:35→16:02)
[2022-12-03 07:00] LABS: Hematocrit 40.7 % (42.0-52.0); Hemoglobin 12.9 g/dL (14.0-18.0); Immature Platelet Fraction Pct 5.7 % (0.9-11.2); Mean Corpuscular HGB Conc 31.7 g/dl (32-36); Mean Corpuscular Hemoglobin 31.5 pg (26-34); Mean Corpuscular Volume 99.5 fl (80-100); Mean Platelet Volume 10.1 fl (7.4-10.4); Platelet Count Result 87 k/mm3 (150-375); Red Blood Count 4.09 M/mm3 (4.6-6.20); Red Cell Distribution Width 15.5 % (11.5-14.5); White Blood Count 41.5 K/mm3 (4.5-10.0)
[2022-12-03 07:27] LABS: Anion Gap 4 mmol/L (8-16); Blood Urea Nitrogen 20 mg/dL (9-20); Calcium 7.7 mg/dL (8.4-10.2); Carbon Dioxide 31 mmol/L (22-30); Chloride 100 mmol/L (98-107); Estimated CRCL calculation 59 ml/min; Estimated Glomerular Filt Rate 58; Glucose 112 mg/dL (65-110); Potassium 4.3 mmol/L (3.4-5.0); Sodium 135 mmol/L (137-145)
[2022-12-03] MEDS: FLUTICASONE/SALMETEROL 115-21 MCG INHALER 1 PUFF 2 PUFF INHALATION ×2 (07:56→20:23)
[2022-12-03 08:09] LABS: Band Neutrophils Percent 15 % (0-6); Lymphocytes Absolute Manual 3.32 K/mm3 (1.1-4.5); Metamyelocytes Percent 6 %; Monocytes Percent Manual 40 % (3-9); Neutrophils Absolute Manual 19.09 K/mm3 (1.3-6.7); Neutrophils Percent Manual 31 % (46-73); Platelet Estimate Decreased (Adequate); Schistocytes None Seen (NORMAL); Total Cells Counted 100
[2022-12-03] MEDS: CHOLECALCIFEROL 1,000 UNITS TABLET 1000 UNITS PO (08:09)
[2022-12-03] MEDS: LOSARTAN POTASSIUM 100 MG TABLET PO (08:09)
[2022-12-03] MEDS: ASPIRIN 81 MG ENTERIC TABLET PO (08:09)
[2022-12-03] MEDS: METOPROLOL SUCCINATE EXT REL 50 MG TABCR PO (08:10)
[2022-12-03] MEDS: FAMOTIDINE 20 MG TABLET PO ×2 (08:10→20:32)
[2022-12-03 09:55] LABS: Alanine Aminotransferase 57 U/L (6-50); Albumin Level 3.9 g/dL (3.5-5.1); Alkaline Phosphatase 1004 U/L (38-126); Aspartate Amino Transferase 77 U/L (17-59); Bilirubin,Total 0.5 mg/dL (0.2-1.3); Uric Acid 7.5 mg/dL (3.5-8.5)
--- NOTE | 2022-12-03 15:41 | PM.IMPN ---
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 However other myelogenous process could also be involved. Consult Dr. Stuart from Oncology. Will repeat CBC and check a uric acid level in a.m. The patient has and has been on prednisone due to COPD. Will hold prednisone as this can interfere in distort hematologic/myeloid findings. (2) Acute hyponatremia: Code(s): E87.1 - Hypo-osmolality and hyponatremia Status: Acute Assessment and Plan: Patient does have some hyponatremia likely due to hypovolemia with decreased oral intake and continued use of Lasix. Will hold off on giving additional IV fluids given the patient's history of diastolic heart failure instead will encourage oral fluid intake and will hold diuretic therapy. Monitor BMP. stable (3) Chronic diastolic (congestive) heart failure: Code(s): I50.32 - Chronic diastolic (congestive) heart failure Status: Acute Assessment and Plan: Not currently in acute exacerbation Hold Lasix due to hyponatremia. Telemetry monitoring (4) Asthma-COPD overlap syndrome: Code(s): J44.9 - Chronic obstructive pulmonary disease, unspecified Status: Acute Assessment and Plan: The patient denies any change in his chronic respiratory symptoms. Will continue albuterol inhalers 2 puffs q.4 as needed for shortness breath. Nebulizers have also been provided as needed. (5) Transaminitis: Code(s): R74.01 - Elevation of levels of liver transaminase levels Status: Acute Assessment and Plan: The patient does have transaminitis and elevated alk-phos. Again concerning for possible acute myelogenous process. Subjective Date/time seen: 12/03/22 15:41 Interval history: Patient lying in bed uncomfortably. Patient appears ill. Patient still having back pain and some abdominal pain. Patient states that his abdomen is more distended than normal. Patient states that he has had some weight loss. Patient denies chest pain, nausea and vomiting. He does states that he is more short of breath and was recently prescribed prednisone for his COPD. Patient describes facial swelling, numbness and tingling. Review of Systems Review of Systems: All systems reviewed & are unremarkable except as noted in HPI and below Exam Narrative: GENERAL: Comfortable, no acute distress HENMT: moist mucous membranes EYES: EOM intact b/l NECK: no lymphadenopathy RESPIRATORY: clear to auscultation CARDIO: RRR GI: distended, lower abdominal tenderness, bowel sounds present SKIN: no rashes EXTREMITIES: no edema, redness or tenderness NEURO: no facial droop, eyebrows lift and scrunch symmetrically, sensation intact, strength 5/5 Objective Data Vital Signs Vital Signs: Vital Signs - 24 hr 12/02/22 15:56 12/02/22 16:14 12/02/22 16:15 Temperature Pulse Rate 87 94 Respiratory Rate 26 H 19 Blood Pressure Pulse Oximetry 91 92 91 Oxygen Delivery Oxygen Flow Rate 12/02/22 17:57 12/02/22 18:19 12/02/22 18:36 Temperature Pulse Rate 93 88 90 Respiratory Rate 20 16 21 H Blood Pressure Pulse Oximetry Oxygen Delivery Oxygen Flow Rate 12/02/22 19:08 12/02/22 19:21 12/02/22 20:41 Temperature 97.6 F Pulse Rate 94 96 96 Respiratory Rate 27 H 19 22 H Blood Pressure 143/71 H 154/86 H Pulse Oximetry 95 93 Oxygen Delivery Oxygen Flow Rate 12/02/22
[2022-12-03] MEDS: WATER FOR IRRIGATION, STERILE 1,000 ML BOTTLE 1000 ML (16:06)
--- NOTE | 2022-12-03 18:24 | PDONCCN ---
[facility] - Date of Consult Date/Time: 12/03/22 18:24 Requesting Physician: Naty Allen MD Primary Care Provider: Aditya Landry MD - Consult Narrative Reason for consult: History of myeloid sarcoma Narrative: Michael Wang is a 81 year old male with history of myeloid sarcoma status post punch biopsy of the skin lesion in June 2021. Patient received radiation therapy to the myeloid sarcoma in August 2021 and then decide a mean from August 2021 till February 2022. Patient came into ER with headache and left-sided facial numbness. He has been feeling quite tired and fatigued with loss of appetite and constipation. He has been getting progressively weak with increasing abdominal distension. He has lost 12 lb weight in 2-3 weeks. Labs showed WBC count of 31,000 [place] [address] with 55% monocytes. He denies any fevers and chills. Denies any bleeding including gum bleeding. CT scan showed large volume of stool in the right colon with nonobstructing left nephrolithiasis. Review of Systems - Review of Systems All systems reviewed & are unremarkable except as noted in HPI and [facility] Medical History: Medical History (Last Updated 12/03/22 @ 06:38 by Leticia Bermudez DO) Allergic rhinitis, unspecified Onset Date: 10/02/15 Asthma-COPD overlap syndrome Basal cell carcinoma Nose, cheek, back BCC (basal cell carcinoma of skin) Bilateral mastodynia Chronic diastolic (congestive) heart failure Essential (primary) hypertension Gynecomastia History of tobacco use quit 1984 Hypovitaminosis D Myeloid sarcoma Onset Date: ~06/2021 Obesity (BMI 30-39.9) DANIELLE (obstructive sleep apnea) Prostate cancer Onset Date: ~2013 Surgical History: Surgical History (Last Updated 12/03/22 @ 06:36 by Leticia Bermudez DO) Status post cataract extraction of both eyes with insertion of intraocular lens Family History: Family History (Last Reviewed 12/03/22 @ 06:39 by Leticia Bermudez DO) Father Acute myocardial infarction, Onset Age: 59 Mother Family history of chronic obstructive pulmonary disease - Social History Social History: Social History (Last Updated 12/03/22 @ 06:41 by Leticia Bermudez DO) Gender Identity: Gender identity (if verbalized by the patient): Male Alcohol Use: Alcohol intake: never Alcohol use details: rarely Substance Use: Substance use: never Substance use type: does not use Others: Spiritual care concerns: No Living Arrangements: Living arrangements: with family Smoking Status: Smoking status: Former smoker Tobacco type: cigarettes Second hand tobacco smoke exposure: No Smoking end date: 02/19/80 Smoking Pack-years: Smoking packs per day: 1 Smoking cigarettes per day: 20.0 Years smoked: 20 Smoking pack-years: 20.00 Social Determinants of Health: Has the Lack of Transportation Kept You From Medical Appointments or From Getting Medications?: No Within the Past 12 Months, Were You Worried Whether Your Food Would Run Out Before You Got Money to Buy More?: Never True What is Your Housing Situation Today?: I Have Housing Are You Worried That in the Next 2 Months, You May Not Have Your Own Housing to Live In?: No Do You Have Trouble Paying Your Heating Or Electricity Bill?: No Do You Have Trouble Paying For Medicines?: No Are You Currently Unemployed and Looking for Work?: No Highest Level of Education Completed: High School Diploma/GED Do You Have Trouble With Childcare or the Care of a Family Member?: No Exam - Vital Signs Vital Signs - 24 hr 12/02/22 18:36 12/02/22 19:08 12/02/22 19:21 Temperature Pulse Rate 90 94 96 Respiratory Rate 21 H 27 H 19 Blood Pressure 143/71 H Pulse Oximetry 95 Oxygen Delivery Oxygen Flow Rate 12/02/22 20:41 12/02/22 20:00 12/02/22 23:54 Temperature 36.4 C Pulse Rate 96 94 Respiratory R
[2022-12-03] MEDS: guaiFENesin 12 HR 600 MG TABCR PO (20:32)
[2022-12-03] MEDS: DOCUSATE SODIUM 100 MG CAPSULE PO (20:32)
[2022-12-03] MEDS: levoFLOXacin 500 MG/D5W 100 ML 500 MG/100 ML BAG 100 MG IVPB (20:32)
[2022-12-04] VITALS (19 sets, daily range): BP systolic 123–160; BP diastolic 58–81; PULSE 69–109; RESP 17–22; TEMP 36.3–36.6; O2SAT 89–97
[2022-12-04] MEDS: ALBUTEROL SULFATE NEB 2.5 MG/3 ML INH INHALATION ×4 (02:52→21:31)
[2022-12-04] MEDS: IPRATROPIUM BR 0.02% INH SOLN 0.5 MG/2.5 ML VIAL INHALATION ×4 (02:52→21:31)
[2022-12-04] MEDS: traMADol HCL (*CRX) 50 MG TABLET PO ×2 (04:02→23:33)
[2022-12-04 06:54] LABS: Hematocrit 39.9 % (42.0-52.0); Hemoglobin 12.4 g/dL (14.0-18.0); Immature Platelet Fraction Pct 5.7 % (0.9-11.2); Mean Corpuscular HGB Conc 31.1 g/dl (32-36); Mean Corpuscular Hemoglobin 31.6 pg (26-34); Mean Corpuscular Volume 101.5 fl (80-100); Mean Platelet Volume 9.9 fl (7.4-10.4); Platelet Count Result 74 k/mm3 (150-375); Red Blood Count 3.93 M/mm3 (4.6-6.20); Red Cell Distribution Width 15.7 % (11.5-14.5); White Blood Count 44.4 K/mm3 (4.5-10.0)
[2022-12-04 07:09] LABS: Alanine Aminotransferase 49 U/L (6-50); Albumin Level 3.6 g/dL (3.5-5.1); Alkaline Phosphatase 1023 U/L (38-126); Anion Gap 7 mmol/L (8-16); Aspartate Amino Transferase 62 U/L (17-59); Bilirubin,Total 0.6 mg/dL (0.2-1.3); Blood Urea Nitrogen 22 mg/dL (9-20); Calcium 6.9 mg/dL (8.4-10.2); Carbon Dioxide 27 mmol/L (22-30); Chloride 98 mmol/L (98-107); Estimated CRCL calculation 64 ml/min; Estimated Glomerular Filt Rate > 60; Glucose 118 mg/dL (65-110); Potassium 4.2 mmol/L (3.4-5.0); Sodium 132 mmol/L (137-145)
[2022-12-04 08:10] LABS: Band Neutrophils Percent 13 % (0-6); Large Platelets Present; Lymphocytes Absolute Manual 0.88 K/mm3 (1.1-4.5); Monocytes Absolute Manual 31.96 K/mm3 (0.1-0.90); Monocytes Percent Manual 72 % (3-9); Neutrophils Absolute Manual 11.54 K/mm3 (1.3-6.7); Neutrophils Percent Manual 13 % (46-73); Nucleated Red Blood Cells 1 %; Platelet Estimate Decreased (Adequate); Schistocytes None Seen (NORMAL); Total Cells Counted 100
[2022-12-04] MEDS: FLUTICASONE/SALMETEROL 115-21 MCG INHALER 1 PUFF 2 PUFF INHALATION ×2 (08:56→21:31)
[2022-12-04] MEDS: polyethylene glycoL 3350 17 GM POWD.PACK PO (09:31)
[2022-12-04] MEDS: LOSARTAN POTASSIUM 100 MG TABLET PO (09:32)
[2022-12-04] MEDS: ASPIRIN 81 MG ENTERIC TABLET PO (09:32)
[2022-12-04] MEDS: ACYCLOVIR 400 MG TABLET PO ×2 (09:32→20:12)
[2022-12-04] MEDS: guaiFENesin 12 HR 600 MG TABCR PO ×2 (09:32→20:12)
[2022-12-04] MEDS: DOCUSATE SODIUM 100 MG CAPSULE PO ×2 (09:32→20:12)
[2022-12-04] MEDS: METOPROLOL SUCCINATE EXT REL 50 MG TABCR PO (09:33)
[2022-12-04] MEDS: FAMOTIDINE 20 MG TABLET PO ×2 (09:33→20:12)
[2022-12-04] MEDS: TIZANIDINE HCL 2 MG TABLET PO (09:34)
[2022-12-04] MEDS: CHOLECALCIFEROL 1,000 UNITS TABLET 1000 UNITS PO (09:34)
--- NOTE | 2022-12-04 15:02 | PM.IMPN ---
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 However other myelogenous process could also be involved. Consult Dr. Stuart from Oncology. Will repeat CBC and check a uric acid level in a.m. The patient has and has been on prednisone due to COPD. Will hold prednisone as this can interfere in distort hematologic/myeloid findings. 12/04/22 Patient has deconditioning and needs a PT and OT assessment for possible rehab. Plan for Biopsy on Tuesday. (2) Acute hyponatremia: Code(s): E87.1 - Hypo-osmolality and hyponatremia Status: Acute Assessment and Plan: Patient does have some hyponatremia likely due to hypovolemia with decreased oral intake and continued use of Lasix. Will hold off on giving additional IV fluids given the patient's history of diastolic heart failure instead will encourage oral fluid intake and will hold diuretic therapy. Monitor BMP. stable (3) Chronic diastolic (congestive) heart failure: Code(s): I50.32 - Chronic diastolic (congestive) heart failure Status: Acute Assessment and Plan: Not currently in acute exacerbation Hold Lasix due to hyponatremia. Telemetry monitoring (4) Asthma-COPD overlap syndrome: Code(s): J44.9 - Chronic obstructive pulmonary disease, unspecified Status: Acute Assessment and Plan: The patient denies any change in his chronic respiratory symptoms. Will continue albuterol inhalers 2 puffs q.4 as needed for shortness breath. Nebulizers have also been provided as needed. 12/04/22 Patient with wheezing today. He is currently on Levaquin which should cover for pulmonary infection Attempt to contact Dr. Stuart to see if patient can be put back on steroids. Continue neds. patient on 2L O2. (5) Transaminitis: Code(s): R74.01 - Elevation of levels of liver transaminase levels Status: Acute Assessment and Plan: The patient does have transaminitis and elevated alk-phos. Again concerning for possible acute myelogenous process. Time Spent With Patient Time with patient: Greater than 35 minutes Subjective Date/time seen: 12/04/22 15:02 Interval history: Patient resting in bed with and daughter at bedside. Patient gave permission to discuss medical treatment in front of them. Patient states that he is very weak. Patient states that he has had some difficulty breathing. Patient states that his pain is controlled at this time. Review of Systems Review of Systems: All systems reviewed & are unremarkable except as noted in HPI and below Exam Narrative: GENERAL: Comfortable, no acute distress HENMT: moist mucous membranes EYES: EOM intact b/l NECK: no lymphadenopathy RESPIRATORY: Bilateral wheezing CARDIO: RRR GI: Distended, nontender, bowel sounds present SKIN: no rashes EXTREMITIES: no edema, redness or tenderness Objective Data Vital Signs Vital Signs: Vital Signs - 24 hr 12/03/22 16:00 12/03/22 19:28 12/03/22 20:27 Temperature 97.9 F Pulse Rate 88 88 78 Respiratory Rate 20 16 Blood Pressure 144/62 H Pulse Oximetry 93 Oxygen Delivery Oxygen Flow Rate 12/03/22 20:00 12/04/22 00:00 12/04/22 02:52 Temperature Pulse Rate 87 98 80 Respiratory Rate 17 Blood Pressure Pulse Oximetry Oxygen Delivery Oxygen Flow Rate 12/04/22 04:28 12/04/22 04:00 12/04/22 08:45 Temperature 97.9 F Pulse Rat
[2022-12-04] MEDS: ACETAMINOPHEN 325 MG TABLET 650 MG PO (16:36)
[2022-12-05] VITALS (17 sets, daily range): BP systolic 134–160; BP diastolic 62–70; PULSE 74–101; RESP 14–22; TEMP 35.7–36.6; O2SAT 93–97
[2022-12-05] MEDS: ALBUTEROL SULFATE NEB 2.5 MG/3 ML INH INHALATION ×4 (01:31→20:32)
[2022-12-05] MEDS: IPRATROPIUM BR 0.02% INH SOLN 0.5 MG/2.5 ML VIAL INHALATION ×4 (01:31→20:32)
[2022-12-05] MEDS: TIZANIDINE HCL 2 MG TABLET PO (01:44)
[2022-12-05] MEDS: traMADol HCL (*CRX) 50 MG TABLET PO ×3 (05:02→22:10)
[2022-12-05 05:51] LABS: Hemoglobin 12.3 g/dL (14.0-18.0); Immature Platelet Fraction Pct 5.4 % (0.9-11.2); Mean Corpuscular HGB Conc 31.5 g/dl (32-36); Mean Corpuscular Hemoglobin 31.7 pg (26-34); Mean Corpuscular Volume 100.5 fl (80-100); Mean Platelet Volume 9.9 fl (7.4-10.4); Platelet Count Result 68 k/mm3 (150-375); Red Blood Count 3.88 M/mm3 (4.6-6.20); Red Cell Distribution Width 15.8 % (11.5-14.5); White Blood Count 42.1 K/mm3 (4.5-10.0)
[2022-12-05 06:03] LABS: Alanine Aminotransferase 49 U/L (6-50); Albumin Level 3.4 g/dL (3.5-5.1); Alkaline Phosphatase 1020 U/L (38-126); Anion Gap 5 mmol/L (8-16); Aspartate Amino Transferase 59 U/L (17-59); Bilirubin,Total 0.5 mg/dL (0.2-1.3); Blood Urea Nitrogen 31 mg/dL (9-20); Calcium 7.4 mg/dL (8.4-10.2); Carbon Dioxide 31 mmol/L (22-30); Chloride 97 mmol/L (98-107); Estimated CRCL calculation 54 ml/min; Estimated Glomerular Filt Rate 53; Glucose 130 mg/dL (65-110); Potassium 3.9 mmol/L (3.4-5.0); Sodium 133 mmol/L (137-145)
[2022-12-05 07:29] LABS: Band Neutrophils Percent 4 % (0-6); Lymphocytes Absolute Manual 2.52 K/mm3 (1.1-4.5); Monocytes Absolute Manual 31.57 K/mm3 (0.1-0.90); Monocytes Percent Manual 75 % (3-9); Neutrophils Absolute Manual 7.99 K/mm3 (1.3-6.7); Neutrophils Percent Manual 15 % (46-73); Total Cells Counted 100
[2022-12-05 07:30] LABS: Atypical Lymphocytes Present; Platelet Estimate Decreased (Adequate); Schistocytes None Seen (NORMAL)
--- NOTE | 2022-12-05 08:34 | PM.IMPN ---
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 However other myelogenous process could also be involved. Consult Dr. Stuart from Oncology. Will repeat CBC and check a uric acid level in a.m. The patient has and has been on prednisone due to COPD. Will hold prednisone as this can interfere in distort hematologic/myeloid findings. Patient has deconditioning and needs a PT and OT assessment for possible rehab. Plan for Biopsy on 12/06/22 (2) Acute hyponatremia: Code(s): E87.1 - Hypo-osmolality and hyponatremia Status: Acute Assessment and Plan: Patient does have some hyponatremia likely due to hypovolemia with decreased oral intake and continued use of Lasix. Will hold off on giving additional IV fluids given the patient's history of diastolic heart failure instead will encourage oral fluid intake and will hold diuretic therapy. Monitor BMP. stable (3) Chronic diastolic (congestive) heart failure: Code(s): I50.32 - Chronic diastolic (congestive) heart failure Status: Acute Assessment and Plan: Not currently in acute exacerbation Hold Lasix due to hyponatremia. Telemetry monitoring (4) Asthma-COPD overlap syndrome: Code(s): J44.9 - Chronic obstructive pulmonary disease, unspecified Status: Acute Assessment and Plan: The patient denies any change in his chronic respiratory symptoms. Will continue albuterol inhalers 2 puffs q.4 as needed for shortness breath. Nebulizers have also been provided as needed. He is currently on Levaquin which should cover for pulmonary infection Continue neds. patient on 2L O2. Discussed with Dr. Stuart and he recommended holding off on steroids until after biopsy. Would like to start steroids if SOB and wheezing worsens. (5) Transaminitis: Code(s): R74.01 - Elevation of levels of liver transaminase levels Status: Acute Assessment and Plan: The patient does have transaminitis and elevated alk-phos. Again concerning for possible acute myelogenous process. (6) Facial numbness: Code(s): R20.0 - Anesthesia of skin Status: Acute Assessment and Plan: Pt presented to ED with left facial numbness. No facial droop, symmetric eyebrow lift and sensation intact. CT head negative for acute intracranial process. Numbness has moved to right side as well as left. 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 Time Spent With Patient Time with patient: Greater than 35 minutes Subjective Date/time seen: 12/05/22 08:34 Interval history: Patient resting in bed sleeping when I enter the room. Patient states that he has not had a good night's rest in several days and that he is very sleepy. Patient states that he has still not had a bowel movement. Patient's shortness of breath is stable. He has no new complaints at this time. Review of Systems Review of Systems: All systems reviewed & are unremarkable except as noted in HPI and below Exam Narrative: GENERAL: Comfortable, no acute distress HENMT: moist mucous membranes EYES: EOM intact b/l NECK: no lymphadenopathy RESPIRATORY: Distant breath sounds CARDIO: RRR GI: Distended, nontender, bowel sounds present SKIN: no rashes EXTREMITIES: no edema, redness or tenderness Objective Data Vital Signs Vital Signs: Vital Signs - 24 hr 12/04/22 08:45 12/04/22 0
[2022-12-05] MEDS: FLUTICASONE/SALMETEROL 115-21 MCG INHALER 1 PUFF 2 PUFF INHALATION ×2 (09:01→20:31)
[2022-12-05] MEDS: polyethylene glycoL 3350 17 GM POWD.PACK PO (09:05)
[2022-12-05] MEDS: ASPIRIN 81 MG ENTERIC TABLET PO (09:06)
[2022-12-05] MEDS: ACYCLOVIR 400 MG TABLET PO ×2 (09:07→20:19)
[2022-12-05] MEDS: guaiFENesin 12 HR 600 MG TABCR PO ×2 (09:07→20:19)
[2022-12-05] MEDS: DOCUSATE SODIUM 100 MG CAPSULE PO ×2 (09:07→20:19)
[2022-12-05] MEDS: CHOLECALCIFEROL 1,000 UNITS TABLET 1000 UNITS PO (09:08)
[2022-12-05] MEDS: METOPROLOL SUCCINATE EXT REL 50 MG TABCR PO (09:08)
[2022-12-05] MEDS: FAMOTIDINE 20 MG TABLET PO ×2 (09:08→20:19)
[2022-12-05] MEDS: LOSARTAN POTASSIUM 100 MG TABLET PO (09:08)
[2022-12-06] VITALS (17 sets, daily range): BP systolic 131–154; BP diastolic 58–71; PULSE 79–92; RESP 14–22; TEMP 36.7–36.8; O2SAT 92–97
[2022-12-06] MEDS: ACETAMINOPHEN 325 MG TABLET 650 MG PO ×2 (00:56→13:14)
[2022-12-06] MEDS: TIZANIDINE HCL 2 MG TABLET PO ×2 (00:57→13:15)
[2022-12-06 05:52] LABS: Hematocrit 38.5 % (42.0-52.0); Immature Platelet Fraction Pct 5.9 % (0.9-11.2); Mean Corpuscular HGB Conc 31.2 g/dl (32-36); Mean Corpuscular Hemoglobin 31.3 pg (26-34); Mean Corpuscular Volume 100.3 fl (80-100); Mean Platelet Volume 10.3 fl (7.4-10.4); Platelet Count Result 65 k/mm3 (150-375); Red Blood Count 3.84 M/mm3 (4.6-6.20); Red Cell Distribution Width 15.7 % (11.5-14.5); White Blood Count 45.7 K/mm3 (4.5-10.0)
[2022-12-06 05:54] LABS: Alanine Aminotransferase 51 U/L (6-50); Albumin Level 3.3 g/dL (3.5-5.1); Alkaline Phosphatase 1004 U/L (38-126); Anion Gap 2 mmol/L (8-16); Aspartate Amino Transferase 53 U/L (17-59); Bilirubin,Total 0.5 mg/dL (0.2-1.3); Blood Urea Nitrogen 39 mg/dL (9-20); Calcium 7.9 mg/dL (8.4-10.2); Carbon Dioxide 32 mmol/L (22-30); Chloride 97 mmol/L (98-107); Estimated CRCL calculation 42 ml/min; Estimated Glomerular Filt Rate 39; Glucose 126 mg/dL (65-110); Potassium 4.7 mmol/L (3.4-5.0); Sodium 131 mmol/L (137-145)
[2022-12-06 06:34] LABS: Band Neutrophils Percent 15 % (0-6); Eosinophils Absolute Manual 0.45 K/mm3 (0.02-0.5); Eosinophils Percent Manual 1 % (0-4); Lymphocytes Absolute Manual 11.42 K/mm3 (1.1-4.5); Metamyelocytes Percent 1 %; Monocytes Absolute Manual 22.85 K/mm3 (0.1-0.90); Monocytes Percent Manual 50 % (3-9); Neutrophils Absolute Manual 10.51 K/mm3 (1.3-6.7); Neutrophils Percent Manual 8 % (46-73); Platelet Estimate Decreased (Adequate); Total Cells Counted 100
[2022-12-06 06:35] LABS: Schistocytes None Seen (NORMAL)
[2022-12-06 07:49] LABS: INR 1.1; Prothrombin Time 13.4 Seconds (11.1-14.7)
[2022-12-06] MEDS: IPRATROPIUM BR 0.02% INH SOLN 0.5 MG/2.5 ML VIAL INHALATION ×3 (08:23→21:20)
[2022-12-06] MEDS: ALBUTEROL SULFATE NEB 2.5 MG/3 ML INH INHALATION ×3 (08:25→21:20)
[2022-12-06] MEDS: FLUTICASONE/SALMETEROL 115-21 MCG INHALER 1 PUFF 2 PUFF INHALATION ×2 (08:49→21:20)
--- NOTE | 2022-12-06 09:18 | PCPTNOTE ---
Addendum entered by May Blake, [employer] 12/06/22 11:06: Per RN, the pt had just got back to his room from a bone marrow biopsy and isn't able to get up out of bed at this time. Will Continue per PT plan of care. Original Note: The patient treatment was not able to be completed at this time due to the patient going down for a procedure. Will continue per PT plan of care.
--- NOTE | 2022-12-06 09:39 | PCOTNOTE ---
The patient OT treatment was not able to be completed at this time due to the patient going down for a procedure. Will continue per OT plan of care.
--- NOTE | 2022-12-06 09:44 | WPDMODSED ---
Moderate Sedation Note-Pt Data Patient Data Diagnosis: AML Present Complaint: Leukocytosis, thrombocytopenia Procedure to be performed/Plan: bone marrow biopsy Allergies Allergy/AdvReac Type Severity Reaction Status Date / Time No Known Allergies Allergy Verified 11/30/22 13:29 Home Medications Medication Instructions Recorded Confirmed Type aspirin 81 mg tablet,delayed 81 mg PO DAILY 09/19/19 12/02/22 History release cholecalciferol (vitamin D3) 25 1,000 unit PO DAILY 09/19/19 12/02/22 History mcg (1,000 unit) capsule (Vitamin D3) multivitamin (Daily Multi-Vitamin 1 tablet PO DAILY 09/19/19 12/02/22 History tablet) vitamin E 400 unit tablet 800 unit PO DAILY 07/30/21 12/02/22 History metformin 500 mg tablet 250 mg PO DAILY #15 tabs 08/25/22 12/02/22 Rx potassium chloride 20 mEq 20 meq PO TID 90 days #270 tabs 09/01/22 12/02/22 Rx tablet,extended release(part/cryst) (Klor-Con M) albuterol sulfate 90 mcg/actuation 1 inh inhalation Q4H PRN shortness 11/29/22 12/02/22 Rx aerosol inhaler (Ventolin HFA) of breath or wheezing #18 grams prednisone 50 mg tablet 50 mg PO DAILY #7 tabs 11/29/22 12/02/22 Rx tizanidine 2 mg tablet 2 mg PO TID PRN muscle spasticity 12/01/22 12/02/22 Rx #20 tabs fluticasone furoate 100 See Rx Instructions .Route .COMPLEX 12/02/22 12/02/22 History mcg-vilanterol 25 mcg/dose inhalation powder (Breo Ellipta) furosemide 40 mg tablet (Lasix) 40 mg PO TID 12/02/22 12/02/22 History losartan 100 mg tablet (Cozaar) 100 mg PO DAILY 12/02/22 12/02/22 History metoprolol succinate 50 mg 50 mg PO DAILY 12/02/22 12/02/22 History tablet,extended release 24 hr (Toprol XL) Current Medications: Active Medications Acetaminophen (Acetaminophen 325 Mg Tablet) 650 mg PO Q4H PRN PRN Reason: Mild Pain (1-3) or Fever Last Admin: 12/06/22 00:56 Dose: 650 mg Acyclovir (Acyclovir 400 Mg Tablet) 400 mg PO Q12HR [facility] Last Admin: 12/05/22 20:19 Dose: 400 mg Albuterol (Albuterol Sulfate Neb 2.5 Mg/3 Ml Inh) 2.5 mg INHALATION Q6HRT [facility] Last Admin: 12/06/22 08:25 Dose: 2.5 mg Albuterol (Albuterol Sulfate (*Sp) Aerosol 1 Puff) 2 puff INHALATION Q4H PRN PRN Reason: shortness of breath or wheezing Aspirin (Aspirin 81 Mg Enteric Tablet) 81 mg PO DAILY [facility] Last Admin: 12/05/22 09:06 Dose: 81 mg Calcium Carbonate (Calcium Carbonate (Tums) 500 Mg (200 Mg Elemental)) 200 mg PO Q6H PRN PRN Reason: Indigestion Docusate Sodium (Docusate Sodium 100 Mg Capsule) 100 mg PO Q12HR [facility] Last Admin: 12/05/22 20:19 Dose: 100 mg Famotidine (Famotidine 20 Mg Tablet) 20 mg PO Q12HR [facility] Last Admin: 12/05/22 20:19 Dose: 20 mg Guaifenesin (Guaifenesin 12 Hr 600 Mg Tabcr) 600 mg PO Q12HR [facility] Last Admin: 12/05/22 20:19 Dose: 600 mg Ipratropium Nunnelly (Ipratropium Br 0.02% Inh Soln 0.5 Mg/2.5 Ml Vial) 0.5 mg INHALATION Q6HRT [facility] Last Admin: 12/06/22 08:23 Dose: 0.5 mg Losartan Potassium (Losartan Potassium 100 Mg Tablet) 100 mg PO DAILY [facility] Last Admin: 12/05/22 09:08 Dose: 100 mg Metoprolol Succinate (Metoprolol Succinate Ext Rel 50 Mg Tabcr) 50 mg PO DAILY [facility] Last Admin: 12/05/22 09:08 Dose: 50 mg Neomycin/Polymyxin/Bacitracin (Neomycin/Polymyxin/Bacitracin Ointment 15 Gm Tube) 1 applic TOPICAL PRN PRN PRN Reason: with dressing changes Polyethylene Glycol (Polyethylene Glycol 3350 17 Gm Powd.Pack) 17 gm PO QAM [facility] Last Admin: 12/05/22 09:05 Dose: 17 gm Fluticasone/Salmeterol (Fluticasone/Salmeterol 115-21 Mcg Inhaler 1 Puff) 2 puff INHALATION Q12HRT [facility] Last Admin: 12/05/22 20:31 Dose: 2 puff Tizanidine HCl (Tizanidine Hcl 2 Mg Tablet) 2 mg PO TID PRN PRN Reason: muscle spasticity Last Admin: 12/06/22 00:57 Dose: 2 mg Tramadol HCl (Tramadol Hcl (*Crx) 50 Mg Tablet) 50 mg PO Q4H PRN PRN Reason: Pain Rated 7-10 Last Admin: 12/05/22 22:10 Dose: 50 mg Vitamin D (Cholecalciferol 1,000 Units Tablet) 1,000 units PO DAILY [facility] Last Ad
[2022-12-06] MEDS: traMADol HCL (*CRX) 50 MG TABLET PO ×2 (10:49→22:12)
[2022-12-06] MEDS: polyethylene glycoL 3350 17 GM POWD.PACK PO (10:50)
[2022-12-06] MEDS: guaiFENesin 12 HR 600 MG TABCR PO ×2 (10:51→20:08)
[2022-12-06] MEDS: DOCUSATE SODIUM 100 MG CAPSULE PO ×2 (10:51→20:08)
[2022-12-06] MEDS: METOPROLOL SUCCINATE EXT REL 50 MG TABCR PO (10:51)
[2022-12-06] MEDS: LOSARTAN POTASSIUM 100 MG TABLET PO (10:52)
[2022-12-06] MEDS: CHOLECALCIFEROL 1,000 UNITS TABLET 1000 UNITS PO (10:52)
[2022-12-06] MEDS: FAMOTIDINE 20 MG TABLET PO ×2 (10:52→20:08)
[2022-12-06] MEDS: ASPIRIN 81 MG ENTERIC TABLET PO (10:52)
[2022-12-06] MEDS: ACYCLOVIR 400 MG TABLET PO ×2 (10:52→20:08)
--- NOTE | 2022-12-06 11:45 | PM.IMPN ---
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 However other myelogenous process could also be involved. Consult Dr. Stuart from Oncology. CBC still shows elevated WBC at 45.7. Prednisone on hold to trend WBCs Sone marrow biopsy 12/06/22 (2) Acute hyponatremia: Code(s): E87.1 - Hypo-osmolality and hyponatremia Status: Acute Assessment and Plan: hyponatremia likely due to hypovolemia with decreased oral intake Current sodium 131 Give 40mg IV lasix BID x4 doses Trend sodium as the patient could be overloaded (3) Chronic diastolic (congestive) heart failure: Code(s): I50.32 - Chronic diastolic (congestive) heart failure Status: Acute Assessment and Plan: Not currently in acute exacerbation Continue lasix Tele monitor does show some episodes of tachycardia Trend daily weights Trend urine output Stable at this time (4) Asthma-COPD overlap syndrome: Code(s): J44.9 - Chronic obstructive pulmonary disease, unspecified Status: Acute Assessment and Plan: The patient denies any change in his chronic respiratory symptoms. Will continue albuterol inhalers 2 puffs q.4 as needed for shortness breath. Nebulizers have also been provided as needed. He is currently on Levaquin which should cover for pulmonary infection Continue neds. patient on 2L O2. Discussed with Dr. Stuart and he recommended holding off on steroids until after biopsy. Will hold on steroids as there is no wheezes (5) Transaminitis: Code(s): R74.01 - Elevation of levels of liver transaminase levels Status: Acute Assessment and Plan: The patient does have transaminitis and elevated alk-phos. Again concerning for possible acute myelogenous process. (6) Facial numbness: Code(s): R20.0 - Anesthesia of skin Status: Acute Assessment and Plan: Pt presented to ED with left facial numbness. No facial droop, symmetric eyebrow lift and sensation intact. CT head negative for acute intracranial process. Numbness has moved to right side as well as left. 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 Time Spent With Patient Time: 51 minutes Time with patient: Greater than 35 minutes Subjective Date/time seen: 12/06/22 14:00 Interval history: 12/06/22 1145 Patient was lying in bed. Patient stated he was just stiff from lying there. He denies any chest pain, nausea, vomiting, diarrhea constipation he did state that he has shortness a breath, with a cough and it is producing a clear sputum. His abdomen does appear to be distended, and he stated that he has not had a BM in the last 12/05/22? 08:34 Patient resting in bed sleeping when I enter the room.? Patient states that he has not had a good night's rest in several days and that he is very sleepy.? Patient states that he has still not had a bowel movement.? Patient's shortness of breath is stable.? He has no new complaints at this time. 12/04/22? 15:02 Patient resting in bed with and daughter at bedside.? Patient gave permission to discuss medical treatment in front of them.? Patient states that he is very weak.? Patient states that he has had some difficulty breathing. Patient states that his pain is controlled at this time. 12/03/22? 15:41 Patient lying in bed uncomfortably.? Patient appears ill.? Patient stil
--- NOTE | 2022-12-06 14:08 | PCPTNOTE ---
The patient treatment was not able to be completed at this time. The pt has been in and out of sleep and has had an increase in pain since the biopsy he had this morning. Will continue per PT plan of care.
[2022-12-06] MEDS: FUROSEMIDE INJ 40 MG/4 ML VIAL IV PUSH ×2 (16:47→20:08)
[2022-12-06] MEDS: SENNA/DOCUSATE SODIUM TABLET 1 TAB PO (20:08)
[2022-12-07] VITALS (17 sets, daily range): BP systolic 130–154; BP diastolic 57–71; PULSE 55–115; RESP 18–22; TEMP 36.3–36.7; O2SAT 91–97
[2022-12-07] MEDS: ALBUTEROL SULFATE NEB 2.5 MG/3 ML INH INHALATION ×4 (03:13→20:15)
[2022-12-07] MEDS: IPRATROPIUM BR 0.02% INH SOLN 0.5 MG/2.5 ML VIAL INHALATION ×4 (03:13→20:15)
[2022-12-07] MEDS: HYDROcodone/acetaminophen (*CRX) 5-325 MG TABLET 1 TAB PO ×3 (04:51→20:16)
[2022-12-07 05:46] LABS: Hematocrit 39.1 % (42.0-52.0); Hemoglobin 12.6 g/dL (14.0-18.0); Immature Platelet Fraction Pct 5.4 % (0.9-11.2); Mean Corpuscular HGB Conc 32.2 g/dl (32-36); Mean Corpuscular Hemoglobin 31.7 pg (26-34); Mean Corpuscular Volume 98.5 fl (80-100); Mean Platelet Volume 10.1 fl (7.4-10.4); Platelet Count Result 60 k/mm3 (150-375); Red Blood Count 3.97 M/mm3 (4.6-6.20); Red Cell Distribution Width 15.6 % (11.5-14.5); White Blood Count 38.6 K/mm3 (4.5-10.0)
[2022-12-07 05:56] LABS: Alanine Aminotransferase 48 U/L (6-50); Albumin Level 3.5 g/dL (3.5-5.1); Alkaline Phosphatase 1009 U/L (38-126); Anion Gap 5 mmol/L (8-16); Aspartate Amino Transferase 49 U/L (17-59); Bilirubin,Total 0.7 mg/dL (0.2-1.3); Blood Urea Nitrogen 44 mg/dL (9-20); Calcium 7.6 mg/dL (8.4-10.2); Carbon Dioxide 31 mmol/L (22-30); Chloride 95 mmol/L (98-107); Estimated CRCL calculation 47 ml/min; Estimated Glomerular Filt Rate 45; Glucose 124 mg/dL (65-110); Magnesium 2.4 mg/dL (1.6-2.3); Potassium 3.5 mmol/L (3.4-5.0); Sodium 131 mmol/L (137-145)
[2022-12-07 07:25] LABS: Uric Acid 11.2 mg/dL (3.5-8.5)
[2022-12-07 07:33] LABS: Band Neutrophils Percent 5 % (0-6); Eosinophils Absolute Manual 0.38 K/mm3 (0.02-0.5); Eosinophils Percent Manual 1 % (0-4); Lymphocytes Absolute Manual 1.93 K/mm3 (1.1-4.5); Monocytes Absolute Manual 30.88 K/mm3 (0.1-0.90); Monocytes Percent Manual 80 % (3-9); Neutrophils Percent Manual 9 % (46-73); Nucleated Red Blood Cells 2 %; Platelet Estimate Decreased (Adequate); Total Cells Counted 100
[2022-12-07 07:34] LABS: Anisocytosis 1+ (NORMAL); Schistocytes None Seen (NORMAL)
[2022-12-07] MEDS: FLUTICASONE/SALMETEROL 115-21 MCG INHALER 1 PUFF 2 PUFF INHALATION (08:00)
[2022-12-07] MEDS: polyethylene glycoL 3350 17 GM POWD.PACK PO (08:15)
[2022-12-07] MEDS: FUROSEMIDE INJ 40 MG/4 ML VIAL IV PUSH ×2 (08:15→16:19)
[2022-12-07] MEDS: CHOLECALCIFEROL 1,000 UNITS TABLET 1000 UNITS PO (08:15)
[2022-12-07] MEDS: LOSARTAN POTASSIUM 100 MG TABLET PO (08:15)
[2022-12-07] MEDS: DOCUSATE SODIUM 100 MG CAPSULE PO ×2 (08:15→20:16)
[2022-12-07] MEDS: ACYCLOVIR 400 MG TABLET PO ×2 (08:15→20:16)
[2022-12-07] MEDS: ASPIRIN 81 MG ENTERIC TABLET PO (08:16)
[2022-12-07] MEDS: FAMOTIDINE 20 MG TABLET PO ×2 (08:16→20:16)
[2022-12-07] MEDS: METOPROLOL SUCCINATE EXT REL 50 MG TABCR PO (08:16)
[2022-12-07] MEDS: guaiFENesin 12 HR 600 MG TABCR PO ×2 (08:16→20:16)
--- NOTE | 2022-12-07 12:00 | P.PNIM_ITS ---
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 However other myelogenous process could also be involved. * Consult Dr. Stuart from Oncology. * CBC still shows elevated WBC at 38.6 * Prednisone on hold to trend WBCs * Bone marrow biopsy 12/06/22 * Uric acid elevated at 11.2 * Started patient on allopurinol (2) Acute hyponatremia: Code(s): E87.1 - Hypo-osmolality and hyponatremia Status: Acute Assessment and Plan: hyponatremia likely due to hypovolemia with decreased oral intake * Current sodium 131 * Give 40mg IV lasix BID x4 doses * Trend sodium as the patient could be overloaded (3) Chronic diastolic (congestive) heart failure: Code(s): I50.32 - Chronic diastolic (congestive) heart failure Status: Acute Assessment and Plan: * Not currently in acute exacerbation * Continue lasix * Tele monitor does show some episodes of tachycardia * Trend daily weights * Trend urine output * Stable at this time (4) Asthma-COPD overlap syndrome: Code(s): J44.9 - Chronic obstructive pulmonary disease, unspecified Status: Acute Assessment and Plan: The patient denies any change in his chronic respiratory symptoms. * Will continue albuterol inhalers 2 puffs q.4 as needed for shortness breath. * Nebulizers have also been provided as needed. * He is currently on Levaquin which should cover for pulmonary infection * Wean patient to room air this afternoon however will need to continue to check and replace oxygen when needed * Discussed with Dr. Stuart and he recommended holding off on steroids until after biopsy. * Will hold on steroids as there is no wheezes (5) Transaminitis: Code(s): R74.01 - Elevation of levels of liver transaminase levels Status: Acute Assessment and Plan: * The patient does have transaminitis and elevated alk-phos. * Again concerning for possible acute myelogenous process. * Alk-phos up to 1009 (6) Facial numbness: Code(s): R20.0 - Anesthesia of skin Status: Acute Assessment and Plan: Pt presented to ED with left facial numbness. No facial droop, symmetric eyebrow lift and sensation intact. CT head negative for acute intracranial process. Numbness has moved to right side as well as left. 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 Plan Spoke with physicians from [facility] who recommended patient be started on fluids, allopurinol. They also recommended other medications and which I did speak to Dr. Stuart about in which he was not wanting to start those at this time. They are also recommending the patient get a DIC panel every day and a fibrinogen is lower than 100 to transfuse cryo. Time Spent With Patient Time: 72 minutes Subjective Date/time seen: 12/07/22 1200 Interval history: 12/07/221199 Patient is sitting in chair. Patient stated that everything is still about the
--- NOTE | 2022-12-07 12:00 | PM.IMPN ---
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 However other myelogenous process could also be involved. Consult Dr. Stuart from Oncology. CBC still shows elevated WBC at 38.6 Prednisone on hold to trend WBCs Bone marrow biopsy 12/06/22 Uric acid elevated at 11.2 Started patient on allopurinol (2) Acute hyponatremia: Code(s): E87.1 - Hypo-osmolality and hyponatremia Status: Acute Assessment and Plan: hyponatremia likely due to hypovolemia with decreased oral intake Current sodium 131 Give 40mg IV lasix BID x4 doses Trend sodium as the patient could be overloaded (3) Chronic diastolic (congestive) heart failure: Code(s): I50.32 - Chronic diastolic (congestive) heart failure Status: Acute Assessment and Plan: Not currently in acute exacerbation Continue lasix Tele monitor does show some episodes of tachycardia Trend daily weights Trend urine output Stable at this time (4) Asthma-COPD overlap syndrome: Code(s): J44.9 - Chronic obstructive pulmonary disease, unspecified Status: Acute Assessment and Plan: The patient denies any change in his chronic respiratory symptoms. Will continue albuterol inhalers 2 puffs q.4 as needed for shortness breath. Nebulizers have also been provided as needed. He is currently on Levaquin which should cover for pulmonary infection Wean patient to room air this afternoon however will need to continue to check and replace oxygen when needed Discussed with Dr. Stuart and he recommended holding off on steroids until after biopsy. Will hold on steroids as there is no wheezes (5) Transaminitis: Code(s): R74.01 - Elevation of levels of liver transaminase levels Status: Acute Assessment and Plan: The patient does have transaminitis and elevated alk-phos. Again concerning for possible acute myelogenous process. Alk-phos up to 1009 (6) Facial numbness: Code(s): R20.0 - Anesthesia of skin Status: Acute Assessment and Plan: Pt presented to ED with left facial numbness. No facial droop, symmetric eyebrow lift and sensation intact. CT head negative for acute intracranial process. Numbness has moved to right side as well as left. 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 Plan Spoke with physicians [place] [facility] [place] who recommended patient be started on fluids, allopurinol. They also recommended other medications and which I did speak to Dr. Stuart about in which he was not wanting to start those at this time. They are also recommending the patient get a DIC panel every day and a fibrinogen is lower than 100 to transfuse cryo. Time Spent With Patient Time: 72 minutes Subjective Date/time seen: 12/07/22 1200 Interval history: 12/07/221199 Patient is sitting in chair. Patient stated that everything is still about the same. He is stating that the pain is worse with sitting in the chair. Patient stated that his pain is in the lower back. Order patient a lidocaine patch at this time. He denies any chest pain, shortness a breath, nausea, vomiting, diarrhea constipation. Patient stated that he did have a good bowel movement. Talked to Dr. Robertson who stated that the patient probably should be transferred to [facility]. [facility] did except Dr. Bah for internal Medicine and Dr. Camarena accepted for heme/onc. 12/06
--- NOTE | 2022-12-07 12:50 | WPDONCPN ---
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 Bone marrow aspiration and biopsy was performed on December 06 and pathology is pending. Labs reviewed. WBC count remains elevated with 80% monocytes. 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 We will recommend transferring came to [facility] where he had seen Oncology Service before. Infection prophylaxis. Continue prophylactic antibiotic and antiviral medicine. - Time Spent With Patient Total time spent is greater than 50% in coordination of care (as documented) at patient's floor/unit and/or counseling patient: 15 - 25 minutes Subjective Interval history: Myeloid sarcoma Review of Systems - Review of Systems Patient remains quite tired and fatigued but feeling slightly better. He had a bowel movement today. Denies any fevers and chills. No bleeding. No other new complaints. Exam Vital signs: Temp Pulse Resp BP Pulse Ox O2 Del Method O2 Flow Rate 36.7 C 93 18 130/61 91 Nasal Cannula 2 12/07/22 06:00 12/07/22 08:16 12/07/22 08:11 12/07/22 06:00 12/07/22 08:00 12/07/22 08:00 12/07/22 08:00 Lungs are clear to auscultation bilaterally Cardiovascular regular rate rhythm no murmurs Abdomen is slightly distended bowel sounds are positive Extremities no edema PN: Objective Data - Labs CBC & Chem 7: 12/07/22 05:19 12/07/22 05:19 Labs: Laboratory Results - last 24 hr 12/07/22 12/07/22 12/07/22 05:19 05:19 05:19 WBC 38.6 H RBC 3.97 L Hgb 12.6 L Hct 39.1 L MCV 98.5 MCH 31.7 MCHC 32.2 RDW 15.6 H Plt Count 60 L MPV 10.1 Immature Gran % (Auto) Not Reportable Neut % (Auto) Not Reportable Lymph % (Auto) Not Reportable Dukes % (Auto) Not Reportable Eos % (Auto) Not Reportable Baso % (Auto) Not Reportable Lymph # (Auto) Not Reportable Dukes # (Auto) Not Reportable Eos # (Auto) Not Reportable Baso # (Auto) Not Reportable Abs Immat Gran (auto) Not Reportable Absolute Neuts (auto) Not Reportable Absolute Nucleated RBC Not Reportable Total Counted 100 Neutrophils % (Manual) 9 L Band Neutrophils % 5 Lymphocytes % (Manual) 5.0 L Monocytes % (Manual) 80 H Eosinophils % (Manual) 1 Nucleated RBC % Not Reportable Abs Neuts (Manual) 5.40 Abs Lymphs (Manual) 1.93 Abs Monocytes (Manual) 30.88 H Absolute Eos (Manual) 0.38 Nucleated RBCs 2 Platelet Estimate Decreased % Immature Plt Fraction 5.4 Anisocytosis 1+ Schistocytes None seen Sodium 131 L Potassium 3.5 Chloride 95 L Carbon Dioxide 31 H Anion Gap 5 L BUN 44 H Creatinine 1.50 H Estim Creat Clear Calc 47 Estimated GFR 45 L Glucose 124 H Uric Acid 11.2 H Calcium 7.6 L Magnesium 2.4 H Total Bilirubin 0.7 AST 49 ALT 48 Alkaline Phosphatase 1009 H Total Protein 7.0 Albumin 3.5
[2022-12-07] MEDS: LACTATED RINGERS 1,000 ML 75 ML IV CONT (14:20)
[2022-12-07 14:44] LABS: INR 1.1; Prothrombin Time 14.1 Seconds (11.1-14.7)
[2022-12-07 14:45] LABS: Fibrinogen 733 mg/dl (215-510); Partial Thromboplastin Time 32.6 SECONDS (22.3-36.8)
[2022-12-07 15:27] LABS: D Dimer 4.12 ug/mL (<0.48)
[2022-12-07] MEDS: LIDOCAINE 5% PATCH 1 PATCH TRANSDERM (16:18)
[2022-12-07] MEDS: SENNA/DOCUSATE SODIUM TABLET 1 TAB PO (20:16)
[2022-12-07] MEDS: ACETAMINOPHEN 325 MG TABLET 650 MG PO (23:16)
[2022-12-08] VITALS (17 sets, daily range): BP systolic 117–123; BP diastolic 70–82; PULSE 84–105; RESP 13–20; TEMP 36.1–36.9; O2SAT 92–96
[2022-12-08] MEDS: HYDROcodone/acetaminophen (*CRX) 5-325 MG TABLET 1 TAB PO ×3 (02:31→18:24)
[2022-12-08] MEDS: TIZANIDINE HCL 2 MG TABLET 4 MG PO ×3 (05:11→18:25)
[2022-12-08 06:12] LABS: Hematocrit 38.8 % (42.0-52.0); Hemoglobin 12.5 g/dL (14.0-18.0); Immature Platelet Fraction Pct 5.3 % (0.9-11.2); Mean Corpuscular HGB Conc 32.2 g/dl (32-36); Mean Corpuscular Hemoglobin 30.9 pg (26-34); Mean Platelet Volume 10.1 fl (7.4-10.4); Platelet Count Result 50 k/mm3 (150-375); Red Blood Count 4.04 M/mm3 (4.6-6.20); Red Cell Distribution Width 15.4 % (11.5-14.5); White Blood Count 36.6 K/mm3 (4.5-10.0)
[2022-12-08 06:22] LABS: Alanine Aminotransferase 64 U/L (6-50); Albumin Level 3.5 g/dL (3.5-5.1); Alkaline Phosphatase 957 U/L (38-126); Anion Gap 5 mmol/L (8-16); Aspartate Amino Transferase 71 U/L (17-59); Bilirubin,Total 0.7 mg/dL (0.2-1.3); Blood Urea Nitrogen 42 mg/dL (9-20); Calcium 7.9 mg/dL (8.4-10.2); Carbon Dioxide 35 mmol/L (22-30); Chloride 96 mmol/L (98-107); Estimated CRCL calculation 51 ml/min; Estimated Glomerular Filt Rate 49; Glucose 126 mg/dL (65-110); Magnesium 2.3 mg/dL (1.6-2.3); Potassium 3.4 mmol/L (3.4-5.0); Sodium 136 mmol/L (137-145)
[2022-12-08 06:36] LABS: INR 1.1; Prothrombin Time 13.9 Seconds (11.1-14.7)
[2022-12-08 06:38] LABS: Fibrinogen 730 mg/dl (215-510)
[2022-12-08 08:21] LABS: Band Neutrophils Percent 2 % (0-6); Lymphocytes Absolute Manual 3.66 K/mm3 (1.1-4.5); Lymphocytes Percent Manual 10 % (18-44); Monocytes Absolute Manual 29.28 K/mm3 (0.1-0.90); Monocytes Percent Manual 80 % (3-9); Neutrophils Absolute Manual 3.66 K/mm3 (1.3-6.7); Neutrophils Percent Manual 8 % (46-73); Total Cells Counted 100
[2022-12-08 08:22] LABS: Nucleated Red Blood Cells 3 %; Platelet Estimate Decreased (Adequate); Schistocytes None Seen (NORMAL)
[2022-12-08] MEDS: ALBUTEROL SULFATE NEB 2.5 MG/3 ML INH INHALATION ×3 (09:28→21:21)
[2022-12-08] MEDS: IPRATROPIUM BR 0.02% INH SOLN 0.5 MG/2.5 ML VIAL INHALATION ×3 (09:28→21:20)
[2022-12-08] MEDS: FLUTICASONE/SALMETEROL 115-21 MCG INHALER 1 PUFF 2 PUFF INHALATION ×2 (09:29→21:21)
[2022-12-08] MEDS: DOCUSATE SODIUM 100 MG CAPSULE PO ×2 (09:42→20:01)
[2022-12-08] MEDS: allopurinoL 100 MG TABLET PO (09:42)
[2022-12-08] MEDS: ACYCLOVIR 400 MG TABLET PO ×2 (09:42→20:01)
[2022-12-08] MEDS: LOSARTAN POTASSIUM 100 MG TABLET PO (09:42)
[2022-12-08] MEDS: ASPIRIN 81 MG ENTERIC TABLET PO (09:42)
[2022-12-08] MEDS: guaiFENesin 12 HR 600 MG TABCR PO ×2 (09:42→20:01)
[2022-12-08] MEDS: FAMOTIDINE 20 MG TABLET PO ×2 (09:43→20:01)
[2022-12-08] MEDS: CHOLECALCIFEROL 1,000 UNITS TABLET 1000 UNITS PO (09:43)
[2022-12-08] MEDS: LIDOCAINE 5% PATCH 1 PATCH TRANSDERM (09:43)
[2022-12-08] MEDS: METOPROLOL SUCCINATE EXT REL 50 MG TABCR PO (09:47)
--- NOTE | 2022-12-08 11:00 | P.PNIM_ITS ---
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 However other myelogenous process could also be involved. * Consult Dr. Stuart from Oncology. * CBC still shows elevated WBC at 36.6, however, trending down * Prednisone on hold to trend WBCs * Bone marrow biopsy 12/06/22 * Uric acid elevated at 11.2 on 12/07/22, recheck in the am * Started patient on allopurinol (2) Acute hyponatremia: Code(s): E87.1 - Hypo-osmolality and hyponatremia Status: Acute Assessment and Plan: hyponatremia likely due to hypovolemia with decreased oral intake * Current sodium 136 * Give 40mg IV lasix BID continued since placed on fluids * Trend sodium as the patient could be overloaded (3) Chronic diastolic (congestive) heart failure: Code(s): I50.32 - Chronic diastolic (congestive) heart failure Status: Acute Assessment and Plan: * Not currently in acute exacerbation * Continue lasix * Tele monitor does show some episodes of tachycardia * Trend daily weights * Trend urine output * Stable at this time (4) Asthma-COPD overlap syndrome: Code(s): J44.9 - Chronic obstructive pulmonary disease, unspecified Status: Acute Assessment and Plan: The patient denies any change in his chronic respiratory symptoms. * Will continue albuterol inhalers 2 puffs q.4 as needed for shortness breath. * Nebulizers have also been provided as needed. * He is currently on Levaquin which should cover for pulmonary infection * Wean patient to room air this afternoon however will need to continue to check and replace oxygen when needed * Discussed with Dr. Stuart and he recommended holding off on steroids until after biopsy. * Will hold on steroids as there is no wheezes (5) Transaminitis: Code(s): R74.01 - Elevation of levels of liver transaminase levels Status: Acute Assessment and Plan: * The patient does have transaminitis and elevated alk-phos. * Again concerning for possible acute myelogenous process. * Alk-phos trending down currently at 957 (6) Facial numbness: Code(s): R20.0 - Anesthesia of skin Status: Acute Assessment and Plan: Pt presented to ED with left facial numbness. No facial droop, symmetric eyebrow lift and sensation intact. CT head negative for acute intracranial process. Numbness has moved to right side as well as left. 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 (7) Constipation: Code(s): K59.00 - Constipation, unspecified Status: Acute Assessment and Plan: * Very distended and firm abdomen * CT of the abdomen showed large amounts of stool in the colon * Instructed for patient to get an enema * Talked to patient and about current plan Plan 12/07/22 Spoke with physicians from [facility] who recommended patient be started on fluids, allopurinol. They also recommended other medica
--- NOTE | 2022-12-08 11:00 | PM.IMPN ---
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 However other myelogenous process could also be involved. Consult Dr. Stuart from Oncology. CBC still shows elevated WBC at 36.6, however, trending down Prednisone on hold to trend WBCs Bone marrow biopsy 12/06/22 Uric acid elevated at 11.2 on 12/07/22, recheck in the am Started patient on allopurinol (2) Acute hyponatremia: Code(s): E87.1 - Hypo-osmolality and hyponatremia Status: Acute Assessment and Plan: hyponatremia likely due to hypovolemia with decreased oral intake Current sodium 136 Give 40mg IV lasix BID continued since placed on fluids Trend sodium as the patient could be overloaded (3) Chronic diastolic (congestive) heart failure: Code(s): I50.32 - Chronic diastolic (congestive) heart failure Status: Acute Assessment and Plan: Not currently in acute exacerbation Continue lasix Tele monitor does show some episodes of tachycardia Trend daily weights Trend urine output Stable at this time (4) Asthma-COPD overlap syndrome: Code(s): J44.9 - Chronic obstructive pulmonary disease, unspecified Status: Acute Assessment and Plan: The patient denies any change in his chronic respiratory symptoms. Will continue albuterol inhalers 2 puffs q.4 as needed for shortness breath. Nebulizers have also been provided as needed. He is currently on Levaquin which should cover for pulmonary infection Wean patient to room air this afternoon however will need to continue to check and replace oxygen when needed Discussed with Dr. Stuart and he recommended holding off on steroids until after biopsy. Will hold on steroids as there is no wheezes (5) Transaminitis: Code(s): R74.01 - Elevation of levels of liver transaminase levels Status: Acute Assessment and Plan: The patient does have transaminitis and elevated alk-phos. Again concerning for possible acute myelogenous process. Alk-phos trending down currently at 957 (6) Facial numbness: Code(s): R20.0 - Anesthesia of skin Status: Acute Assessment and Plan: Pt presented to ED with left facial numbness. No facial droop, symmetric eyebrow lift and sensation intact. CT head negative for acute intracranial process. Numbness has moved to right side as well as left. 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 (7) Constipation: Code(s): K59.00 - Constipation, unspecified Status: Acute Assessment and Plan: Very distended and firm abdomen CT of the abdomen showed large amounts of stool in the colon Instructed for patient to get an enema Talked to patient and about current plan Plan 12/07/22 [facility] who recommended patient be started on fluids, allopurinol. They also recommended other medications and which I did speak to Dr. Stuart about in which he was not wanting to start those at this time. They are also recommending the patient get a DIC panel every day and a fibrinogen is lower than 100 to transfuse cryo. 12/08/22 Called Gabby who stated that the patient will need to go to [facility] or [facility]. Will Attempt to call [place]. Time Spent With Patient Time: 63 minutes Time with patient: Greater than 35 minutes Subjective Date/time seen: 12/08/22 1100 Interval history:
[2022-12-08] MEDS: LACTATED RINGERS 1,000 ML 75 ML IV CONT (11:41)
--- NOTE | 2022-12-08 13:53 | PCOTNOTE ---
Attempted to see this P.M. Patient refused treatment this session due to having increased problems. Spoke with RN, stated, yeah he is not doing as well as yesterday when seen. He has a descended abdomen, is increased pain and RN is trying to have him transferred to another hospital.
[2022-12-08] MEDS: SENNA/DOCUSATE SODIUM TABLET 1 TAB PO (20:01)
[2022-12-08] MEDS: HYDROmorphone HCL INJ (*CRX) 1 MG/ML SYR IV PUSH (23:11)
[2022-12-09] VITALS (13 sets, daily range): BP systolic 104–160; BP diastolic 50–71; PULSE 78–98; RESP 18–24; TEMP 36.1–36.6; O2SAT 93–94
[2022-12-09] MEDS: IPRATROPIUM BR 0.02% INH SOLN 0.5 MG/2.5 ML VIAL INHALATION ×3 (02:58→15:47)
[2022-12-09] MEDS: ALBUTEROL SULFATE NEB 2.5 MG/3 ML INH INHALATION ×3 (02:59→15:47)
[2022-12-09] MEDS: HYDROcodone/acetaminophen (*CRX) 5-325 MG TABLET 1 TAB PO ×3 (03:26→17:03)
[2022-12-09] MEDS: TIZANIDINE HCL 4 MG TABLET PO ×3 (03:27→17:05)
[2022-12-09] MEDS: LACTATED RINGERS 1,000 ML 75 ML IV CONT ×2 (03:29→17:03)
[2022-12-09 05:44] LABS: Hematocrit 33.2 % (42.0-52.0); Hemoglobin 10.8 g/dL (14.0-18.0); Immature Platelet Fraction Pct 5.1 % (0.9-11.2); Mean Corpuscular HGB Conc 32.5 g/dl (32-36); Mean Corpuscular Hemoglobin 31.7 pg (26-34); Mean Corpuscular Volume 97.4 fl (80-100); Mean Platelet Volume 9.9 fl (7.4-10.4); Platelet Count Result 46 k/mm3 (150-375); Red Blood Count 3.41 M/mm3 (4.6-6.20); Red Cell Distribution Width 15.5 % (11.5-14.5); White Blood Count 36.5 K/mm3 (4.5-10.0)
[2022-12-09 05:55] LABS: Alanine Aminotransferase 63 U/L (6-50); Albumin Level 3.2 g/dL (3.5-5.1); Alkaline Phosphatase 872 U/L (38-126); Anion Gap 5 mmol/L (8-16); Aspartate Amino Transferase 74 U/L (17-59); Bilirubin,Total 0.8 mg/dL (0.2-1.3); Blood Urea Nitrogen 52 mg/dL (9-20); Calcium 7.6 mg/dL (8.4-10.2); Carbon Dioxide 32 mmol/L (22-30); Chloride 92 mmol/L (98-107); Estimated CRCL calculation 42 ml/min; Estimated Glomerular Filt Rate 39; Glucose 124 mg/dL (65-110); Magnesium 2.2 mg/dL (1.6-2.3); Potassium 3.4 mmol/L (3.4-5.0); Sodium 129 mmol/L (137-145)
[2022-12-09 05:59] LABS: Band Neutrophils Percent 10 % (0-6); Lymphocytes Absolute Manual 4.01 K/mm3 (1.1-4.5); Monocytes Absolute Manual 25.18 K/mm3 (0.1-0.90); Monocytes Percent Manual 69 % (3-9); Neutrophils Percent Manual 10 % (46-73); Nucleated Red Blood Cells 1 %; Platelet Estimate Decreased (Adequate); Total Cells Counted 100
[2022-12-09 06:01] LABS: Hypochromasia 1+ (NORMAL); Schistocytes Rare (NORMAL); Smudge Cells FEW; Stomatocytes 1+ (NORMAL)
[2022-12-09 06:17] LABS: INR 1.1; Prothrombin Time 14.1 Seconds (11.1-14.7)
[2022-12-09 06:18] LABS: Fibrinogen 671 mg/dl (215-510); Partial Thromboplastin Time 33.9 SECONDS (22.3-36.8)
[2022-12-09 07:01] LABS: D Dimer 4.94 ug/mL (<0.48)
[2022-12-09 08:07] LABS: Ferritin > 2000.00 ng/mL (11.1-264)
[2022-12-09] MEDS: allopurinoL 100 MG TABLET PO (08:46)
[2022-12-09] MEDS: guaiFENesin 12 HR 600 MG TABCR PO (08:47)
[2022-12-09] MEDS: LIDOCAINE 5% PATCH 1 PATCH TRANSDERM (08:47)
[2022-12-09] MEDS: FAMOTIDINE 20 MG TABLET PO (08:47)
[2022-12-09] MEDS: LOSARTAN POTASSIUM 100 MG TABLET PO (08:47)
[2022-12-09] MEDS: DOCUSATE SODIUM 100 MG CAPSULE PO (08:47)
[2022-12-09] MEDS: ACYCLOVIR 400 MG TABLET PO (08:47)
[2022-12-09] MEDS: ASPIRIN 81 MG ENTERIC TABLET PO (08:47)
[2022-12-09] MEDS: CHOLECALCIFEROL 1,000 UNITS TABLET 1000 UNITS PO (08:47)
[2022-12-09] MEDS: polyethylene glycoL 3350 17 GM POWD.PACK PO (08:48)
[2022-12-09] MEDS: METOPROLOL SUCCINATE EXT REL 50 MG TABCR PO (08:48)
--- NOTE | 2022-12-09 09:15 | P.PNIM_ITS ---
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 However other myelogenous process could also be involved. * Consult Dr. Stuart from Oncology. * CBC still shows elevated WBC at 36.5, however, trending down * Prednisone restarted due to elevated uric acid and increase wheezes * Bone marrow biopsy 12/06/22 * Uric acid elevated at 11.0 on 12/09/22, continue to trend * Continue allopurinol (2) Acute hyponatremia: Code(s): E87.1 - Hypo-osmolality and hyponatremia Status: Acute Assessment and Plan: hyponatremia likely due to hypovolemia with decreased oral intake * Current sodium 129 today * Give 40mg IV lasix BID continued since placed on fluids * Trend sodium as the patient could be overloaded * Most likely trending down due to fluid overload (3) Chronic diastolic (congestive) heart failure: Code(s): I50.32 - Chronic diastolic (congestive) heart failure Status: Acute Assessment and Plan: * Not currently in acute exacerbation * Continue lasix * Tele monitor does show some episodes of tachycardia * Trend daily weights * Trend urine output * Stable at this time (4) Asthma-COPD overlap syndrome: Code(s): J44.9 - Chronic obstructive pulmonary disease, unspecified Status: Acute Assessment and Plan: The patient denies any change in his chronic respiratory symptoms. * Will continue albuterol inhalers 2 puffs q.4 as needed for shortness breath. * Nebulizers have also been provided as needed. * Continue Levaquin which should cover for pulmonary infection * Wean supplemental oxygen as tolerated * Started steroid ue to increased wheezing (5) Transaminitis: Code(s): R74.01 - Elevation of levels of liver transaminase levels Status: Acute Assessment and Plan: * The patient does have transaminitis and elevated alk-phos. * Again concerning for possible acute myelogenous process. * Alk-phos trending down currently at 872 (6) Facial numbness: Code(s): R20.0 - Anesthesia of skin Status: Acute Assessment and Plan: Pt presented to ED with left facial numbness. No facial droop, symmetric eyebrow lift and sensation intact. CT head negative for acute intracranial process. Numbness has moved to right side as well as left. 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 Complaints of lower lip swelling Give one time solumedrol 125mg IV once Trend respiratory status Monitor for airway compromise (7) Constipation: Code(s): K59.00 - Constipation, unspecified Status: Acute Assessment and Plan: * Still very distending * CT of the abdomen showed large amounts of stool in the colon * continue miralax and colace, add PRN suppository Plan 12/07/22 Spoke with physicians from [facility] who recommended patient be started on fluids, allopurinol. They also recommended other medications and
--- NOTE | 2022-12-09 09:15 | PM.IMPN ---
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 However other myelogenous process could also be involved. Consult Dr. Stuart from Oncology. CBC still shows elevated WBC at 36.5, however, trending down Prednisone restarted due to elevated uric acid and increase wheezes Bone marrow biopsy 12/06/22 Uric acid elevated at 11.0 on 12/09/22, continue to trend Continue allopurinol (2) Acute hyponatremia: Code(s): E87.1 - Hypo-osmolality and hyponatremia Status: Acute Assessment and Plan: hyponatremia likely due to hypovolemia with decreased oral intake Current sodium 129 today Give 40mg IV lasix BID continued since placed on fluids Trend sodium as the patient could be overloaded Most likely trending down due to fluid overload (3) Chronic diastolic (congestive) heart failure: Code(s): I50.32 - Chronic diastolic (congestive) heart failure Status: Acute Assessment and Plan: Not currently in acute exacerbation Continue lasix Tele monitor does show some episodes of tachycardia Trend daily weights Trend urine output Stable at this time (4) Asthma-COPD overlap syndrome: Code(s): J44.9 - Chronic obstructive pulmonary disease, unspecified Status: Acute Assessment and Plan: The patient denies any change in his chronic respiratory symptoms. Will continue albuterol inhalers 2 puffs q.4 as needed for shortness breath. Nebulizers have also been provided as needed. Continue Levaquin which should cover for pulmonary infection Wean supplemental oxygen as tolerated Started steroid ue to increased wheezing (5) Transaminitis: Code(s): R74.01 - Elevation of levels of liver transaminase levels Status: Acute Assessment and Plan: The patient does have transaminitis and elevated alk-phos. Again concerning for possible acute myelogenous process. Alk-phos trending down currently at 872 (6) Facial numbness: Code(s): R20.0 - Anesthesia of skin Status: Acute Assessment and Plan: Pt presented to ED with left facial numbness. No facial droop, symmetric eyebrow lift and sensation intact. CT head negative for acute intracranial process. Numbness has moved to right side as well as left. 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 Complaints of lower lip swelling Give one time solumedrol 125mg IV once Trend respiratory status Monitor for airway compromise (7) Constipation: Code(s): K59.00 - Constipation, unspecified Status: Acute Assessment and Plan: Still very distending CT of the abdomen showed large amounts of stool in the colon continue miralax and colace, add PRN suppository Plan 12/07/22 Spoke with physicians from [facility] who recommended patient be started on fluids, allopurinol. They also recommended other medications and which I did speak to Dr. Stuart about in which he was not wanting to start those at this time. They are also recommending the patient get a DIC panel every day and a fibrinogen is lower than 100 to transfuse cryo. 12/08/22 Called Gabby who stated that the patient will need to go to [facility]. Will Attempt to call [place]. Time Spent With Patient Time: 64 minutes Time with patient: Greater than 35 minutes Subjective Date/time seen: 12/09/22 09:15 Interval history: 12/09/22 091
[2022-12-09] MEDS: predniSONE 20 MG TABLET 40 MG PO (10:54)
[2022-12-09] MEDS: methylPREDNISolone SOD SUCC 125 MG VIAL IV PUSH (10:54)
--- NOTE | 2022-12-09 12:46 | WPDONCPN ---
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 I have called Dr. Childs at [facility] to expedite the transfer. I am waiting to hear back from her. Infection prophylaxis. Continue prophylactic antiviral and antibiotics. Hyperuricemia. Patient is on allopurinol. - Time Spent With Patient Total time spent is greater than 50% in coordination of care (as documented) at patient's floor/unit and/or counseling patient: 15 - 25 minutes Subjective Interval history: Myeloid sarcoma Review of Systems - Review of Systems Patient complain of tiredness and fatigue. He denies any fevers and chills. He has some gum swelling without any bleeding. Denies any diarrhea. Other new complaints. Exam Vital signs: Lungs are clear to auscultation bilaterally Cardiovascular regular rate rhythm no murmurs Abdomen is slightly bloated bowel sounds are diminished Extremities no edema PN: Objective Data - Labs CBC & Chem 7: 12/09/22 05:33 12/09/22 05:33 Labs: Laboratory Results - last 24 hr 12/09/22 12/09/22 12/09/22 05:33 05:33 05:33 WBC 36.5 H RBC 3.41 L Hgb 10.8 L Hct 33.2 L MCV 97.4 MCH 31.7 MCHC 32.5 RDW 15.5 H Plt Count 46 L MPV 9.9 Immature Gran % (Auto) Not Reportable Neut % (Auto) Not Reportable Lymph % (Auto) Not Reportable [place] % (Auto) Not Reportable Eos % (Auto) Not Reportable Baso % (Auto) Not Reportable Lymph # (Auto) Not Reportable [place] # (Auto) Not Reportable Eos # (Auto) Not Reportable Baso # (Auto) Not Reportable Abs Immat Gran (auto) Not Reportable Absolute Neuts (auto) Not Reportable Absolute Nucleated RBC Not Reportable Total Counted 100 Neutrophils % (Manual) 10 L Band Neutrophils % 10 H Lymphocytes % (Manual) 11.0 L Monocytes % (Manual) 69 H Nucleated RBC % Not Reportable Abs Neuts (Manual) 7.30 H Abs Lymphs (Manual) 4.01 Abs Monocytes (Manual) 25.18 H Nucleated RBCs 1 Smudge Cells Few Platelet Estimate Decreased % Immature Plt Fraction 5.1 Hypochromasia 1+ Stomatocytes 1+ Schistocytes Rare PT 14.1 INR 1.1 APTT 33.9 Fibrinogen 671 H D-Dimer 4.94 H Sodium 129 L Potassium 3.4 Chloride 92 L Carbon Dioxide 32 H Anion Gap 5 L BUN 52 H D Creatinine 1.70 H Estim Creat Clear Calc 42 Estimated GFR 39 L Glucose 124 H Uric Acid 11.0 H Calcium 7.6 L Magnesium 2.2 Ferritin Total Bilirubin 0.8 AST 74 H ALT 63 H Alkaline Phosphatase 872 H Total Protein 6.0 L Albumin 3.2 L 12/09/22 05:33 WBC RBC Hgb Hct MCV MCH MCHC RDW Plt Count MPV Immature Gran % (Auto) Neut % (Auto) Lymph % (Auto) [place] % (Auto) Eos % (Auto) Baso % (Auto) Lymph # (Auto) [place] # (Auto) Eos # (Auto) Baso # (Auto) Abs Immat Gran (auto) Absolute Neuts (auto) Absolute Nucleated RBC Total Counted Neutrophils % (Manual) Band Neutrophils % Lymphocytes % (Manual) Monocytes % (Manual) Nucleated RBC % Abs Neuts (Manual) Abs Lymphs (Manual) Abs Monocytes (Manual) Nucleated RBCs Smudge Cells Platelet Estimate % Immature Plt Fraction Hypochromasia Stomatocytes Schistocytes PT INR APTT Fibrinogen D-Dimer Sodium Potassium Chloride Carbon Dioxide Anion Gap BUN Creatinine Estim Creat Clear Calc Estimated GFR Glucose Uric Acid Calcium Magnesium Ferritin > 2000.00 H Total Bilirubin AST ALT Alkaline Phosphatase Total Protein Albumin
--- NOTE | 2022-12-09 18:31 | PC.NURSE ---
Call made to pt to inform her of transfer to [facility]. Room 705. Pt aware and belongings gathered. Report given to Jessica at [facility].
--- NOTE | 2022-12-10 16:41 | P.TS_ITS ---
Transfer Discharge Sum: Prov Provider Date of admission: 12/04/22 13:27 Primary care physician: Aditya Landry MD Admitting clinician: Naty Allen MD Consults: 12/02/22 17:32 Consult to Physician Routine Comment: Consulting Provider: Darin Stuart Reason for consultation: acute leukemia Has provider been notified: Yes Receiving physician/facility: [facility], Dr. Bah for internal medicine and Dr. 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 However other myelogenous process could also be involved. * Consult Dr. Stuart from Oncology. * CBC still shows elevated WBC at 36.5, however, trending down * Prednisone restarted due to elevated uric acid and increase wheezes * Bone marrow biopsy 12/06/22 * Uric acid elevated at 11.0 on 12/09/22, continue to trend * Continue allopurinol (2) Acute hyponatremia: Code(s): E87.1 - Hypo-osmolality and hyponatremia Status: Acute Assessment and Plan: hyponatremia likely due to hypovolemia with decreased oral intake * Current sodium 129 today * Give 40mg IV lasix BID continued since placed on fluids * Trend sodium as the patient could be overloaded * Most likely trending down due to fluid overload (3) Chronic diastolic (congestive) heart failure: Code(s): I50.32 - Chronic diastolic (congestive) heart failure Status: Acute Assessment and Plan: * Not currently in acute exacerbation * Continue lasix * Tele monitor does show some episodes of tachycardia * Trend daily weights * Trend urine output * Stable at this time (4) Asthma-COPD overlap syndrome: Code(s): J44.9 - Chronic obstructive pulmonary disease, unspecified Status: Acute Assessment and Plan: The patient denies any change in his chronic respiratory symptoms. * Will continue albuterol inhalers 2 puffs q.4 as needed for shortness breath. * Nebulizers have also been provided as needed. * Continue Levaquin which should cover for pulmonary infection * Wean supplemental oxygen as tolerated * Started steroid ue to increased wheezing (5) Transaminitis: Code(s): R74.01 - Elevation of levels of liver transaminase levels Status: Acute Assessment and Plan: * The patient does have transaminitis and elevated alk-phos. * Again concerning for possible acute myelogenous process. * Alk-phos trending down currently at 872 (6) Facial numbness: Code(s): R20.0 - Anesthesia of skin Status: Acute Assessment and Plan: Pt presented to ED with left facial numbness. No facial droop, symmetric eyebrow lift and sensation intact. CT head negative for acute intracranial process. N umbness has moved to right side as well as left. This is most likely
--- NOTE | 2022-12-10 16:41 | PM.TDS ---
Transfer Discharge Sum: Prov Provider Date of admission: 12/04/22 13:27 Primary care physician: Aditya Landry MD Admitting clinician: Naty Allen MD Consults: 12/02/22 17:32 Consult to Physician Routine Comment: Consulting Provider: Darin Stuart Reason for consultation: acute leukemia Has provider been notified: Yes Receiving physician/facility: [facility], Dr. Bah for internal medicine and Dr. 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 However other myelogenous process could also be involved. Consult Dr. Stuart from Oncology. CBC still shows elevated WBC at 36.5, however, trending down Prednisone restarted due to elevated uric acid and increase wheezes Bone marrow biopsy 12/06/22 Uric acid elevated at 11.0 on 12/09/22, continue to trend Continue allopurinol (2) Acute hyponatremia: Code(s): E87.1 - Hypo-osmolality and hyponatremia Status: Acute Assessment and Plan: hyponatremia likely due to hypovolemia with decreased oral intake Current sodium 129 today Give 40mg IV lasix BID continued since placed on fluids Trend sodium as the patient could be overloaded Most likely trending down due to fluid overload (3) Chronic diastolic (congestive) heart failure: Code(s): I50.32 - Chronic diastolic (congestive) heart failure Status: Acute Assessment and Plan: Not currently in acute exacerbation Continue lasix Tele monitor does show some episodes of tachycardia Trend daily weights Trend urine output Stable at this time (4) Asthma-COPD overlap syndrome: Code(s): J44.9 - Chronic obstructive pulmonary disease, unspecified Status: Acute Assessment and Plan: The patient denies any change in his chronic respiratory symptoms. Will continue albuterol inhalers 2 puffs q.4 as needed for shortness breath. Nebulizers have also been provided as needed. Continue Levaquin which should cover for pulmonary infection Wean supplemental oxygen as tolerated Started steroid ue to increased wheezing (5) Transaminitis: Code(s): R74.01 - Elevation of levels of liver transaminase levels Status: Acute Assessment and Plan: The patient does have transaminitis and elevated alk-phos. Again concerning for possible acute myelogenous process. Alk-phos trending down currently at 872 (6) Facial numbness: Code(s): R20.0 - Anesthesia of skin Status: Acute Assessment and Plan: Pt presented to ED with left facial numbness. No facial droop, symmetric eyebrow lift and sensation intact. CT head negative for acute intracranial process. Numbness has moved to right side as well as left. 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 Complaints of lower lip swelling Give one time solumedrol 125mg IV once Trend respiratory status Monitor for airway compromise (7) Constipation: Code(s): K59.00 - Constipation, unspecified Status: Acute Assessment and Plan: Still very distending CT of the abdomen showed large amounts of stool in the colon continue miralax and colace, add PRN suppository Plan 12/07/22 Spoke with physicians from [facility] who recommended patient be started on f
== END 2022-12-09 20:15 | disposition short-term general hospital (02) | DRG 835 ==
LOC: ANHED 14:45 → ANH3MED 19:41
PROVIDERS: Emergency Medicine; Internal Medicine; Internal Medicine Critical Care Medicine; Radiology Diagnostic Radiology; Admitting Provider Hospitalist; Emergency Provider Emergency Medicine; PCP Internal Medicine; Visit Provider Nurse Practitioner
PROC: 079T3ZX Drainage of Bone Marrow, Percutaneous Approach, Diagnostic (ICD-10-PCS; principal; 2022-12-06 09:30)
DX: C92.00 Acute myeloblastic leukemia, not having achieved remission (principal); E87.1 Hypo-osmolality and hyponatremia; I50.32 Chronic diastolic (congestive) heart failure; C92.30 Myeloid sarcoma, not having achieved remission; I11.0 Hypertensive heart disease with heart failure; J44.9 Chronic obstructive pulmonary disease, unspecified; R74.01 Elevation of levels of liver transaminase levels; R20.0 Anesthesia of skin; K59.00 Constipation, unspecified; G47.33 Obstructive sleep apnea (adult) (pediatric); Z20.822 Contact with and (suspected) exposure to COVID-19; Z79.899 Other long term (current) drug therapy; Z87.891 Personal history of nicotine dependence; Z82.49 Family history of ischemic heart disease and other diseases of the circulatory system; Z82.5 Family history of asthma and other chronic lower respiratory diseases
CPT/HCPCS: 36415; 38222; 70450; 71045; 71046; 74176; 74177; 80048; 80053; 80076; 82728; 83735; 84550; 85025; 85055; 85380; 85384; 85610; 85730; 87040; 87636; 88305; 88311; 88313; 88341; 88342; 93005; 93970; 94640; 94660; 96361; 96374; 96375; 97110; 97161; 97165; 97530; 97535; 99285; A9270; G0378; J0131; J1170; J1642; J1940; J1956; J2250; J2930; J3010; J7030; J7120; J7512; Q9967